=== PATIENT | female | born 1950 | race Caucasian/White ===

== ENCOUNTER → 2016-07-20 | Outpatient (CLI) | payer MEDICARE, MEDICAID ==
[~2016-07-20] MED LIST: AMLO5TAB88 PO; ASPI-518 PO; ATOR20TA65 PO; CELE200C PO; FURO40TA5 PO; GABA-531 PO; INSULIN; LOSA1TAB37 PO; METF850T2 PO; MONT10TA21 PO; SERT25TA74 PO; SITA100T6 PO
== END | disposition home or self-care (01) ==
LOC: MAMMO 13:49
PROVIDERS: ATTEND Internal Medicine
DX: Z12.31 Encounter for screening mammogram for malignant neoplasm of breast (principal)
CPT/HCPCS: G0202

== ENCOUNTER 2017-09-04 16:10 | Emergency (ER) | payer MEDICARE, MEDICAID ==
[~2017-09-04] VITALS: Ht 152.4 cm; Wt 80.0 kg
[~2017-09-04 16:10] MED LIST changes: +SITA100T11 PO; -SITA100T6 PO
[2017-09-04 16:28] VITALS: BP 150/78
== END 2017-09-04 16:32 | disposition home or self-care (01) ==
LOC: ER 16:10
DX: R10.9 Unspecified abdominal pain (principal); I12.0 Hypertensive chronic kidney disease with stage 5 chronic kidney disease or end stage renal disease; N18.6 End stage renal disease; Z99.2 Dependence on renal dialysis
CPT/HCPCS: 99283

== ENCOUNTER 2018-06-09 09:13 | Inpatient (IN) | payer MEDICARE, MEDICAID ==
[2018-06-09] VITALS (8 sets, daily range): BP systolic 98–207; BP diastolic 63–118
[~2018-06-09] VITALS: Ht 152.4 cm; Wt 109.0 kg
[~2018-06-09 09:13] MED LIST changes: +METF-415 PO; -METF850T2 PO
[2018-06-09] MEDS ORDERED: METHYLPREDNISOLONE SOD SUCC 125 MG/2 ML VIAL IV STA (09:17)
[2018-06-09] MEDS ORDERED: IPRATROPIUM BROMIDE (0.02%) 0.5MG/2.5ML NEB HHN STA (09:17)
[2018-06-09] MEDS ORDERED: MAGNESIUM 2 G PREMIX 50 ML IV ONE (09:30)
[2018-06-09] MEDS ORDERED: ALBUTEROL (0.083%) 2.5MG/3ML NEB HHN SCH (09:30)
[2018-06-09 09:53] LABS: BASOPHILS % 0.3 % (0.0-2.0); EOSINOPHILS % 0.3 % (0.0-5.0); HEMATOCRIT. 33.6 % (36.0-48.0); HEMOGLOBIN. 11.4 g/dL (12.0-16.0); LYMPHOCYTES % 7.2 % (20.0-50.0); MEAN CORPUSCULAR HEMOGLOBIN 33.4 pg (28.0-32.0); MEAN CORPUSCULAR VOLUME 98.2 fL (81.0-99.0); MEAN PLATELET VOLUME 7.5 fl (7.4-10.4); MONOCYTES % 6.4 % (2.0-8.0); NEUTROPHILS % 85.8 % (40.0-76.0); PLATELET 198 x1000/uL (130-400); RED BLOOD CELL COUNT 3.42 mill/uL (4.2-5.4)
[2018-06-09 09:57] LABS: CHLORIDE 92 mEq/L (98-107)
[2018-06-09] MEDS ORDERED: FUROSEMIDE 100MG/10ML VIAL IV STA (10:12)
[2018-06-09] MEDS ORDERED: SODIUM BICARBONATE 8.4% 1 MEQ/ML 50ML SYR IV ONE (10:15)
[2018-06-09] MEDS ORDERED: INSULIN REGULAR (HUMULIN R) 300UNITS/3ML IV ONE (10:15)
[2018-06-09] MEDS ORDERED: DEXTROSE 50% WATER 50ML SYRINGE IV ONE (10:15)
[2018-06-09] MEDS ORDERED: ENALAPRIL 2.5MG/2ML VIAL 2ML IV ONE (10:30)
[2018-06-09] MEDS ORDERED: ONDANSETRON HCL 4MG/2ML INJ IV PRN (11:45)
[2018-06-09] MEDS ORDERED: DOCUSATE SODIUM 100MG CAPSULE PO PRN (11:45)
[2018-06-09] MEDS ORDERED: SODIUM POLYSTYRENE SULFONATE 15 G/60 ML BOT PO ONE (11:45)
[2018-06-09] MEDS ORDERED: HYDROMORPHONE HCL/PF 2MG/ML CPJ IV PRN (11:45)
[2018-06-09] MEDS ORDERED: AMLODIPINE 10MG TABLET PO SCH (11:45)
[2018-06-09] MEDS ORDERED: ACETAMINOPHEN 325MG TABLET PO PRN (11:45)
[2018-06-09] MEDS ORDERED: HYDROCODONE/ACETAMINOPHEN 5/325MG TABLET PO PRN (11:45)
[2018-06-09] MEDS ORDERED: IPRATROPIUM/ALBUTEROL 0.5-3(2.5)MG/3ML NEB INH PRN (11:45)
[2018-06-09] MEDS ORDERED: MAGNESIUM/ALUMINUM HYDROXIDE/SIMETHICONE 30ML UDC PO PRN (11:45)
[2018-06-09] MEDS ORDERED: GUAIFENESIN 200MG/10ML SUGAR FREE UDC PO PRN (11:45)
[2018-06-09] MEDS ORDERED: DIPHENHYDRAMINE 50MG/ML VIAL IV PRN (11:45)
[2018-06-09] MEDS ORDERED: DEXTROSE 50% WATER 50ML SYRINGE IV PRN (15:15)
[2018-06-09] MEDS ORDERED: SODIUM POLYSTYRENE SULFONATE 15 G/60 ML BOT PO NR (15:30)
[2018-06-09] MEDS ORDERED: SERTRALINE HCL 25MG TABLET PO SCH (16:00)
[2018-06-09] MEDS: INSULIN LISPRO (MEDIUM DOSE) 100 UNITS/ML SUBCUT SCH ×2 (17:20→20:37)
[2018-06-09] MEDS: BLOOD SUGAR DIAGNOSTIC STRIP TEST SCH ×2 (17:20→20:30)
[2018-06-09] MEDS: MONTELUKAST SODIUM 10MG TABLET PO SCH (17:52)
[2018-06-09] MEDS: CLONIDINE 0.1MG TABLET PO PRN (17:52)
[2018-06-09] MEDS ORDERED: INS NPH/REG HM 70-30 100 UNITS/ML 10ML VIAL (HUMULIN 70-30) SUBCUT SCH (18:15)
[2018-06-09] MEDS ORDERED: LOSARTAN POTASSIUM 100 MG TABLET PO SCH (20:00)
[2018-06-09] MEDS: SERTRALINE HCL 25MG TABLET PO SCH (20:13)
[2018-06-09] MEDS: LOSARTAN POTASSIUM 100 MG TABLET PO SCH (20:13)
[2018-06-09] MEDS: AMLODIPINE 10MG TABLET PO SCH (20:14)
[2018-06-10] VITALS (12 sets, daily range): BP systolic 107–174; BP diastolic 58–95
[2018-06-10] MEDS: CLONIDINE 0.1MG TABLET PO PRN ×2 (01:25→17:06)
[2018-06-10] MEDS: INSULIN LISPRO (MEDIUM DOSE) 100 UNITS/ML SUBCUT SCH ×2 (05:40→12:20)
[2018-06-10] MEDS: BLOOD SUGAR DIAGNOSTIC STRIP TEST SCH ×4 (05:40→21:00)
[2018-06-10 06:56] LABS: CHLORIDE 96 mEq/L (98-107)
[2018-06-10 07:04] LABS: BASOPHILS % 0.3 % (0.0-2.0); EOSINOPHILS % 0.1 % (0.0-5.0); HEMATOCRIT. 29.8 % (36.0-48.0); HEMOGLOBIN. 10.1 g/dL (12.0-16.0); LYMPHOCYTES % 13.2 % (20.0-50.0); MEAN CORPUSCULAR HEMOGLOBIN 33.1 pg (28.0-32.0); MEAN CORPUSCULAR VOLUME 97.2 fL (81.0-99.0); MEAN PLATELET VOLUME 8.2 fl (7.4-10.4); MONOCYTES % 8.9 % (2.0-8.0); NEUTROPHILS % 77.5 % (40.0-76.0); PLATELET 166 x1000/uL (130-400); RED BLOOD CELL COUNT 3.06 mill/uL (4.2-5.4); RED CELL DISTRIBUTION WIDTH 14.5 % (11.6-14.6)
[2018-06-10 07:26] LABS: PHOSPHORUS 8.5 mg/dL (2.5-4.9)
[2018-06-10] MEDS ORDERED: INS NPH/REG HM 70-30 100 UNITS/ML 10ML VIAL (HUMULIN 70-30) SUBCUT SCH (08:15)
[2018-06-10] MEDS: AMLODIPINE 10MG TABLET PO SCH (08:24)
[2018-06-10] MEDS: SERTRALINE HCL 25MG TABLET PO SCH (08:24)
[2018-06-10] MEDS: LOSARTAN POTASSIUM 100 MG TABLET PO SCH (08:24)
[2018-06-10] MEDS: ASPIRIN/DIPYRIDAMOLE 25MG/200MG CAPSULE SA PO SCH (08:24)
[2018-06-10] MEDS: LANTHANUM CARBONATE 500MG CHEW TABLET PO SCH ×2 (13:45→17:06)
[2018-06-10] MEDS ORDERED: DEXTROSE 50% WATER 50ML SYRINGE IV PRN (17:00)
[2018-06-10] MEDS ORDERED: ENOXAPARIN 40MG/0.4ML SYR SUBCUT SCH (17:00)
[2018-06-10] MEDS: INSULIN LISPRO 100 UNITS/ML SUBCUT SCH ×2 (17:01→21:00)
[2018-06-10] MEDS: MONTELUKAST SODIUM 10MG TABLET PO SCH (17:05)
[2018-06-10] MEDS: NYSTATIN POWDER 15GM TOP SCH (18:49)
[2018-06-11] VITALS (9 sets, daily range): BP systolic 138–193; BP diastolic 55–91
[2018-06-11 06:23] LABS: BASOPHILS % 0.4 % (0.0-2.0); EOSINOPHILS % 3.5 % (0.0-5.0); HEMATOCRIT. 33.2 % (36.0-48.0); HEMOGLOBIN. 10.9 g/dL (12.0-16.0); LYMPHOCYTES % 20.8 % (20.0-50.0); MEAN CORPUSCULAR HEMOGLOBIN 32.4 pg (28.0-32.0); MEAN CORPUSCULAR VOLUME 98.4 fL (81.0-99.0); MEAN PLATELET VOLUME 8.2 fl (7.4-10.4); MONOCYTES % 10.2 % (2.0-8.0); NEUTROPHILS % 65.1 % (40.0-76.0); PLATELET 196 x1000/uL (130-400); RED BLOOD CELL COUNT 3.38 mill/uL (4.2-5.4); RED CELL DISTRIBUTION WIDTH 14.5 % (11.6-14.6)
[2018-06-11] MEDS: BLOOD SUGAR DIAGNOSTIC STRIP TEST SCH ×2 (06:55→11:52)
[2018-06-11] MEDS: INSULIN LISPRO 100 UNITS/ML SUBCUT SCH ×2 (06:55→11:59)
[2018-06-11] MEDS: LANTHANUM CARBONATE 500MG CHEW TABLET PO SCH ×2 (06:56→11:58)
[2018-06-11] MEDS: LOSARTAN POTASSIUM 100 MG TABLET PO SCH (08:19)
[2018-06-11] MEDS: SERTRALINE HCL 25MG TABLET PO SCH (08:19)
[2018-06-11] MEDS: AMLODIPINE 10MG TABLET PO SCH (08:19)
[2018-06-11] MEDS: NYSTATIN POWDER 15GM TOP SCH (08:19)
[2018-06-11] MEDS: ASPIRIN/DIPYRIDAMOLE 25MG/200MG CAPSULE SA PO SCH (08:19)
[2018-06-11] MEDS: CLONIDINE 0.1MG TABLET PO PRN (11:03)
[2018-06-11] MEDS ORDERED: HYDRALAZINE 20MG/ML VIAL IV NR (11:45)
== END 2018-06-11 13:15 | disposition home or self-care (01) | DRG 291 ==
LOC: ER 09:13 → EDBD 09:13 → 3WST 10:41 → EDBEDREQSVC 10:43 → EDBEDREQTM 10:43 → EDBEDREQ 10:43 → ENRESERV 11:32 → SUPCPDRO 11:34
PROVIDERS: ADMIT Hospitalist; ATTEND Hospitalist
PROC: 5A09357 Assistance with Respiratory Ventilation, Less than 24 Consecutive Hours, Continuous Positive Airway Pressure (ICD-10-PCS; principal; 2018-06-09)
PROC: 5A1D70Z Performance of Urinary Filtration, Intermittent, Less than 6 Hours Per Day (ICD-10-PCS; 2018-06-09)
PROC: 5A1D70Z Performance of Urinary Filtration, Intermittent, Less than 6 Hours Per Day (ICD-10-PCS; 2018-06-10)
DX: I13.2 Hypertensive heart and chronic kidney disease with heart failure and with stage 5 chronic kidney disease, or end stage renal disease (principal); J96.01 Acute respiratory failure with hypoxia; I50.33 Acute on chronic diastolic (congestive) heart failure; N18.6 End stage renal disease; E87.1 Hypo-osmolality and hyponatremia; N25.81 Secondary hyperparathyroidism of renal origin; Z68.42 Body mass index [BMI] 45.0-49.9, adult; E87.5 Hyperkalemia; E11.40 Type 2 diabetes mellitus with diabetic neuropathy, unspecified; E11.22 Type 2 diabetes mellitus with diabetic chronic kidney disease; J45.909 Unspecified asthma, uncomplicated; I16.0 Hypertensive urgency; E66.01 Morbid (severe) obesity due to excess calories; G47.33 Obstructive sleep apnea (adult) (pediatric); D64.9 Anemia, unspecified; L30.4 Erythema intertrigo; Z99.2 Dependence on renal dialysis; Z88.0 Allergy status to penicillin; Z88.5 Allergy status to narcotic agent; Z83.3 Family history of diabetes mellitus; Z82.49 Family history of ischemic heart disease and other diseases of the circulatory system; Z79.82 Long term (current) use of aspirin; Z79.899 Other long term (current) drug therapy; Z91.15 Patient's noncompliance with renal dialysis
CPT/HCPCS: 36415; 71045; 80048; 82962; 83735; 83880; 84100; 84484; 93005; 93970; 94640; 94660; 96365; 96375; 99291; J0360; J1200; J1650; J1815; J1940; J2930; J3475; J3490; J7611; J7620

== ENCOUNTER 2019-01-12 13:56 | Emergency (ER) | payer MEDICARE, MEDICAID ==
[~2019-01-12] VITALS: Ht 157.5 cm; Wt 84.0 kg
[2019-01-12 14:44] LABS: BASOPHILS % 0.6 % (0.0-2.0); CHLORIDE 96 mEq/L (98-107); EOSINOPHILS % 1.9 % (0.0-5.0); HEMATOCRIT. 30.6 % (36.0-48.0); HEMOGLOBIN. 10.4 g/dL (12.0-16.0); LYMPHOCYTES % 9.7 % (20.0-50.0); MEAN CORPUSCULAR HEMOGLOBIN 31.7 pg (28.0-32.0); MEAN PLATELET VOLUME 8.2 fl (7.4-10.4); MONOCYTES % 7.8 % (2.0-8.0); PLATELET 194 x1000/uL (130-400); RED BLOOD CELL COUNT 3.29 mill/uL (4.2-5.4); RED CELL DISTRIBUTION WIDTH 16.1 % (11.6-14.6)
[2019-01-12 16:51] VITALS: BP 147/74
== END 2019-01-12 16:54 | disposition home or self-care (01) ==
LOC: ER 13:56
DX: E11.649 Type 2 diabetes mellitus with hypoglycemia without coma (principal); T38.3X5A Adverse effect of insulin and oral hypoglycemic [antidiabetic] drugs, initial encounter; I12.0 Hypertensive chronic kidney disease with stage 5 chronic kidney disease or end stage renal disease; E11.22 Type 2 diabetes mellitus with diabetic chronic kidney disease; N18.6 End stage renal disease; Z99.2 Dependence on renal dialysis; Y92.530 Ambulatory surgery center as the place of occurrence of the external cause; Z79.4 Long term (current) use of insulin
CPT/HCPCS: 36415; 71045; 82962; 93005; 99284

== ENCOUNTER 2019-01-14 15:44 | Inpatient (IN) | payer MEDICARE, MEDICAID ==
[2019-01-14] VITALS (8 sets, daily range): BP systolic 149–183; BP diastolic 58–99
[~2019-01-14] VITALS: Ht 152.4 cm; Wt 95.3 kg
[2019-01-14] MEDS ORDERED: DEXTROSE 50% WATER 50ML SYRINGE IV ONE ×2 (16:04→16:15)
[2019-01-14 16:12] LABS: BASOPHILS % 0.7 % (0.0-2.0); EOSINOPHILS % 1.1 % (0.0-5.0); LYMPHOCYTES % 11.3 % (20.0-50.0); MEAN CORPUSCULAR HEMOGLOBIN 31.4 pg (28.0-32.0); MEAN CORPUSCULAR VOLUME 93.9 fL (81.0-99.0); MEAN PLATELET VOLUME 8.3 fl (7.4-10.4); NEUTROPHILS % 75.9 % (40.0-76.0); PLATELET 196 x1000/uL (130-400); RED BLOOD CELL COUNT 3.51 mill/uL (4.2-5.4); RED CELL DISTRIBUTION WIDTH 15.6 % (11.6-14.6)
[2019-01-14 16:19] LABS: CHLORIDE 96 mEq/L (98-107); PROTHROMBIN TIME 10.8 sec (9.6-11.0)
[2019-01-14 16:25] LABS: LDL CHOLESTEROL 76 mg/dL (5-100)
[2019-01-14] MEDS ORDERED: ASPIRIN 325MG TABLET PO ONE (17:15)
[2019-01-14] MEDS ORDERED: HYDRALAZINE 20MG/ML VIAL IV ONE (17:30)
[2019-01-14] MEDS ORDERED: HYDRALAZINE 20MG/ML VIAL ONE (17:32)
[2019-01-14] MEDS ORDERED: NICARDIPINE 40MG/200ML PREMIX 200 ML IV STA (18:19)
[2019-01-14] MEDS ORDERED: DOCUSATE SODIUM 100MG CAPSULE PO PRN (19:00)
[2019-01-14] MEDS: ACETAMINOPHEN 325MG TABLET PO PRN (19:36)
[2019-01-14] MEDS ORDERED: LISINOPRIL 20MG TABLET PO SCH (20:00)
[2019-01-14] MEDS ORDERED: SERTRALINE HCL 50MG TABLET PO NR (21:45)
[2019-01-14] MEDS: HYDRALAZINE HCL 50MG TABLET PO SCH (22:03)
[2019-01-14] MEDS: AMLODIPINE 10MG TABLET PO SCH (22:03)
[2019-01-15] VITALS (42 sets, daily range): BP systolic 145–196; BP diastolic 51–133
[2019-01-15] MEDS: LORAZEPAM 2MG/ML CPJ IV PRN ×2 (00:57→14:04)
[2019-01-15] MEDS: HYDRALAZINE 20MG/ML VIAL IV PRN ×3 (01:15→18:56)
[2019-01-15] MEDS: ACETAMINOPHEN 325MG TABLET PO PRN (01:21)
[2019-01-15] MEDS ORDERED: DEXTROSE 50% WATER 50ML SYRINGE IV PRN (02:15)
[2019-01-15] MEDS: ONDANSETRON HCL 4MG/2ML INJ IV PRN ×2 (03:20→14:03)
[2019-01-15] MEDS: HYDRALAZINE HCL 50MG TABLET PO SCH ×3 (05:01→21:46)
[2019-01-15] MEDS: CLONIDINE 0.1MG TABLET PO PRN (05:39)
[2019-01-15 05:45] LABS: BASOPHILS % 0.6 % (0.0-2.0); EOSINOPHILS % 0.9 % (0.0-5.0); HEMATOCRIT. 29.6 % (36.0-48.0); HEMOGLOBIN. 9.9 g/dL (12.0-16.0); LYMPHOCYTES % 9.2 % (20.0-50.0); MEAN CORPUSCULAR HEMOGLOBIN 31.6 pg (28.0-32.0); MEAN CORPUSCULAR VOLUME 94.4 fL (81.0-99.0); MEAN PLATELET VOLUME 8.5 fl (7.4-10.4); NEUTROPHILS % 79.3 % (40.0-76.0); PLATELET 177 x1000/uL (130-400); RED BLOOD CELL COUNT 3.13 mill/uL (4.2-5.4); RED CELL DISTRIBUTION WIDTH 15.5 % (11.6-14.6)
[2019-01-15 05:52] LABS: CHLORIDE 95 mEq/L (98-107)
[2019-01-15 05:58] LABS: PHOSPHORUS 4.9 mg/dL (2.5-4.9)
[2019-01-15 05:59] LABS: HDL CHOLESTEROL 78 mg/dL (40-59); LDL CHOLESTEROL 65 mg/dL (5-100)
[2019-01-15] MEDS ORDERED: CALCIUM CARBONATE 500MG TABLET CHEW PO SCH (08:20)
[2019-01-15] MEDS: INSULIN LISPRO 100 UNITS/ML SUBCUT SCH ×4 (08:20→22:09)
[2019-01-15] MEDS ORDERED: INSULIN LISPRO 100 UNITS/ML SUBCUT SCH (08:20)
[2019-01-15] MEDS: GUAIFENESIN 200MG/10ML SUGAR FREE UDC PO PRN ×2 (08:36→14:03)
[2019-01-15] MEDS: SERTRALINE HCL 50MG TABLET PO SCH (08:36)
[2019-01-15] MEDS: FOLIC ACID/VITAMIN B COMP W-C TABLET PO SCH (08:36)
[2019-01-15] MEDS: BLOOD SUGAR DIAGNOSTIC STRIP TEST SCH ×4 (08:38→21:46)
[2019-01-15] MEDS ORDERED: AMLODIPINE 10MG TABLET PO SCH (09:00)
[2019-01-15] MEDS: CALCIUM CARBONATE 500MG TABLET CHEW PO SCH ×2 (14:03→16:16)
[2019-01-15] MEDS: GABAPENTIN 300MG CAPSULE PO SCH ×2 (14:03→22:07)
[2019-01-15] MEDS: ASPIRIN/DIPYRIDAMOLE 25MG/200MG CAPSULE SA PO SCH ×2 (14:03→21:46)
[2019-01-15] MEDS: ENOXAPARIN 30MG/0.3ML SYR SUBCUT SCH (14:04)
[2019-01-15] MEDS: MONTELUKAST SODIUM 10MG TABLET PO SCH (16:17)
[2019-01-15] MEDS: ATORVASTATIN CALCIUM 10MG TABLET PO SCH (21:45)
[2019-01-15] MEDS: LOSARTAN POTASSIUM 100 MG TABLET PO SCH (21:46)
[2019-01-15] MEDS: AMLODIPINE 10MG TABLET PO SCH (21:46)
[2019-01-16] VITALS (21 sets, daily range): BP systolic 117–179; BP diastolic 51–69
[2019-01-16] MEDS: ONDANSETRON HCL 4MG/2ML INJ IV PRN ×2 (01:10→08:07)
[2019-01-16 05:12] LABS: BASOPHILS % 0.8 % (0.0-2.0); HEMOGLOBIN. 9.8 g/dL (12.0-16.0); LYMPHOCYTES % 12.1 % (20.0-50.0); MEAN CORPUSCULAR HEMOGLOBIN 32.3 pg (28.0-32.0); MEAN CORPUSCULAR VOLUME 95.8 fL (81.0-99.0); MEAN PLATELET VOLUME 8.6 fl (7.4-10.4); MONOCYTES % 8.8 % (2.0-8.0); NEUTROPHILS % 76.3 % (40.0-76.0); PLATELET 196 x1000/uL (130-400); RED BLOOD CELL COUNT 3.03 mill/uL (4.2-5.4); RED CELL DISTRIBUTION WIDTH 15.9 % (11.6-14.6)
[2019-01-16 05:32] LABS: CHLORIDE 93 mEq/L (98-107)
[2019-01-16 05:39] LABS: PHOSPHORUS 7.2 mg/dL (2.5-4.9)
[2019-01-16] MEDS: FOLIC ACID/VITAMIN B COMP W-C TABLET PO SCH (08:08)
[2019-01-16] MEDS: GUAIFENESIN 200MG/10ML SUGAR FREE UDC PO PRN (08:08)
[2019-01-16] MEDS: ASPIRIN/DIPYRIDAMOLE 25MG/200MG CAPSULE SA PO SCH ×2 (08:08→22:08)
[2019-01-16] MEDS: ENOXAPARIN 30MG/0.3ML SYR SUBCUT SCH (08:08)
[2019-01-16] MEDS: CALCIUM CARBONATE 500MG TABLET CHEW PO SCH ×3 (08:08→17:50)
[2019-01-16] MEDS: SERTRALINE HCL 50MG TABLET PO SCH (08:08)
[2019-01-16] MEDS: HYDRALAZINE HCL 50MG TABLET PO SCH ×2 (08:09→21:48)
[2019-01-16] MEDS: INSULIN LISPRO 100 UNITS/ML SUBCUT SCH ×4 (08:09→21:46)
[2019-01-16] MEDS: BLOOD SUGAR DIAGNOSTIC STRIP TEST SCH ×4 (08:09→21:49)
[2019-01-16] MEDS: GABAPENTIN 300MG CAPSULE PO SCH ×2 (10:49→21:49)
[2019-01-16] MEDS: MONTELUKAST SODIUM 10MG TABLET PO SCH (17:10)
[2019-01-16] MEDS: INS NPH/REG HM 70-30 100 UNITS/ML 10ML VIAL (HUMULIN 70-30) SUBCUT SCH (17:50)
[2019-01-16] MEDS: CLONIDINE 0.1MG TABLET PO PRN (18:19)
[2019-01-16] MEDS ORDERED: EPOETIN ALFA 4000UNITS/ML VIAL SUBCUT SCH (21:00)
[2019-01-16] MEDS: LOSARTAN POTASSIUM 100 MG TABLET PO SCH (21:48)
[2019-01-16] MEDS: ATORVASTATIN CALCIUM 10MG TABLET PO SCH (21:48)
[2019-01-16] MEDS: AMLODIPINE 10MG TABLET PO SCH (21:49)
[2019-01-17] VITALS: BP 128/45
[2019-01-17 04:00] VITALS: BP 116/42
[2019-01-17 05:43] LABS: BASOPHILS % 0.7 % (0.0-2.0); HEMOGLOBIN. 9.4 g/dL (12.0-16.0); LYMPHOCYTES % 13.8 % (20.0-50.0); MEAN CORPUSCULAR HEMOGLOBIN 32.3 pg (28.0-32.0); MEAN PLATELET VOLUME 8.4 fl (7.4-10.4); MONOCYTES % 9.8 % (2.0-8.0); NEUTROPHILS % 72.7 % (40.0-76.0); PLATELET 203 x1000/uL (130-400); RED BLOOD CELL COUNT 2.92 mill/uL (4.2-5.4); RED CELL DISTRIBUTION WIDTH 15.7 % (11.6-14.6)
[2019-01-17 06:30] LABS: PHOSPHORUS 5.8 mg/dL (2.5-4.9)
[2019-01-17] MEDS: BLOOD SUGAR DIAGNOSTIC STRIP TEST SCH ×4 (06:44→20:11)
[2019-01-17 08:00] VITALS: BP 137/47
[2019-01-17] MEDS: SERTRALINE HCL 50MG TABLET PO SCH (08:40)
[2019-01-17] MEDS: FOLIC ACID/VITAMIN B COMP W-C TABLET PO SCH (08:40)
[2019-01-17] MEDS: ASPIRIN/DIPYRIDAMOLE 25MG/200MG CAPSULE SA PO SCH ×2 (08:40→20:39)
[2019-01-17] MEDS: CALCIUM CARBONATE 500MG TABLET CHEW PO SCH ×3 (08:40→18:30)
[2019-01-17] MEDS: GABAPENTIN 300MG CAPSULE PO SCH ×2 (08:40→20:38)
[2019-01-17] MEDS: ENOXAPARIN 30MG/0.3ML SYR SUBCUT SCH (08:41)
[2019-01-17] MEDS: INS NPH/REG HM 70-30 100 UNITS/ML 10ML VIAL (HUMULIN 70-30) SUBCUT SCH ×2 (08:44→18:32)
[2019-01-17] MEDS: INSULIN LISPRO 100 UNITS/ML SUBCUT SCH ×4 (08:44→20:11)
[2019-01-17] MEDS: HYDRALAZINE HCL 50MG TABLET PO SCH ×2 (09:00→20:39)
[2019-01-17] MEDS: LACTULOSE 20G/30ML UDC PO SCH ×2 (11:00→11:50)
[2019-01-17] MEDS: POLYETHYLENE GLYCOL 3350 (17GM) 1 DOSE PACK PO SCH ×2 (11:00→11:50)
[2019-01-17 12:00] VITALS: BP 148/55
[2019-01-17 16:00] VITALS: BP 161/52
[2019-01-17] MEDS: MONTELUKAST SODIUM 10MG TABLET PO SCH (18:29)
[2019-01-17 20:37] VITALS: BP 153/63
[2019-01-17] MEDS: AMLODIPINE 10MG TABLET PO SCH (20:39)
[2019-01-17] MEDS: ATORVASTATIN CALCIUM 10MG TABLET PO SCH (20:39)
[2019-01-17] MEDS: LOSARTAN POTASSIUM 100 MG TABLET PO SCH (20:39)
[2019-01-18 00:24] VITALS: BP 142/48
[2019-01-18 04:00] VITALS: BP 151/54
[2019-01-18 06:45] LABS: BASOPHILS % 0.7 % (0.0-2.0); EOSINOPHILS % 3.5 % (0.0-5.0); HEMOGLOBIN. 9.5 g/dL (12.0-16.0); LYMPHOCYTES % 15.1 % (20.0-50.0); MEAN CORPUSCULAR HEMOGLOBIN 31.6 pg (28.0-32.0); MEAN CORPUSCULAR VOLUME 96.1 fL (81.0-99.0); MEAN PLATELET VOLUME 8.5 fl (7.4-10.4); MONOCYTES % 8.9 % (2.0-8.0); NEUTROPHILS % 71.8 % (40.0-76.0); PLATELET 191 x1000/uL (130-400); RED BLOOD CELL COUNT 3.01 mill/uL (4.2-5.4); RED CELL DISTRIBUTION WIDTH 15.7 % (11.6-14.6)
[2019-01-18] MEDS: BLOOD SUGAR DIAGNOSTIC STRIP TEST SCH (06:50)
[2019-01-18 07:37] LABS: PHOSPHORUS 4.4 mg/dL (2.5-4.9)
[2019-01-18 08:00] VITALS: BP 154/52
[2019-01-18] MEDS: FOLIC ACID/VITAMIN B COMP W-C TABLET PO SCH (08:56)
[2019-01-18] MEDS: ASPIRIN/DIPYRIDAMOLE 25MG/200MG CAPSULE SA PO SCH (08:57)
[2019-01-18] MEDS: ENOXAPARIN 30MG/0.3ML SYR SUBCUT SCH (08:57)
[2019-01-18] MEDS: CALCIUM CARBONATE 500MG TABLET CHEW PO SCH (08:57)
[2019-01-18] MEDS: SERTRALINE HCL 50MG TABLET PO SCH (08:57)
[2019-01-18] MEDS: GABAPENTIN 300MG CAPSULE PO SCH (08:57)
[2019-01-18] MEDS: HYDRALAZINE HCL 50MG TABLET PO SCH (08:57)
[2019-01-18] MEDS: INSULIN LISPRO 100 UNITS/ML SUBCUT SCH (08:59)
[2019-01-18] MEDS: INS NPH/REG HM 70-30 100 UNITS/ML 10ML VIAL (HUMULIN 70-30) SUBCUT SCH (09:01)
[2019-01-18 10:27] VITALS: BP 154/52
== END 2019-01-18 11:35 | disposition home or self-care (01) | DRG 637 ==
LOC: ER 15:44 → CVICU 18:17 → EDBEDREQ 18:19 → EDBEDREQSVC 18:19 → ENRESERV 18:39 → 6WST 01-16 11:59
PROVIDERS: ADMIT Hospitalist; ATTEND Hospitalist
PROC: 5A1D70Z Performance of Urinary Filtration, Intermittent, Less than 6 Hours Per Day (ICD-10-PCS; principal; 2019-01-16)
PROC: 5A1D70Z Performance of Urinary Filtration, Intermittent, Less than 6 Hours Per Day (ICD-10-PCS; 2019-01-17)
DX: E11.649 Type 2 diabetes mellitus with hypoglycemia without coma (principal); I50.33 Acute on chronic diastolic (congestive) heart failure; I13.2 Hypertensive heart and chronic kidney disease with heart failure and with stage 5 chronic kidney disease, or end stage renal disease; I16.1 Hypertensive emergency; G93.40 Encephalopathy, unspecified; Z68.41 Body mass index [BMI] 40.0-44.9, adult; N18.6 End stage renal disease; N25.81 Secondary hyperparathyroidism of renal origin; F41.9 Anxiety disorder, unspecified; E11.22 Type 2 diabetes mellitus with diabetic chronic kidney disease; E11.42 Type 2 diabetes mellitus with diabetic polyneuropathy; E11.65 Type 2 diabetes mellitus with hyperglycemia; E78.5 Hyperlipidemia, unspecified; E83.39 Other disorders of phosphorus metabolism; F17.200 Nicotine dependence, unspecified, uncomplicated; F32.9 Major depressive disorder, single episode, unspecified; J44.9 Chronic obstructive pulmonary disease, unspecified; K21.9 Gastro-esophageal reflux disease without esophagitis; M19.90 Unspecified osteoarthritis, unspecified site; E66.01 Morbid (severe) obesity due to excess calories; G47.33 Obstructive sleep apnea (adult) (pediatric); I25.10 Atherosclerotic heart disease of native coronary artery without angina pectoris; Z79.899 Other long term (current) drug therapy; Z82.49 Family history of ischemic heart disease and other diseases of the circulatory system; Z99.2 Dependence on renal dialysis; Z79.82 Long term (current) use of aspirin; Z88.0 Allergy status to penicillin; Z88.8 Allergy status to other drugs, medicaments and biological substances; Z87.01 Personal history of pneumonia (recurrent)
CPT/HCPCS: 36415; 70496; 70498; 71045; 80048; 80053; 80061; 82962; 83721; 84100; 84484; 85025; 93005; 93306; 93970; 96374; 97162; 97530; 99291; J0360; J0885; J1650; J1815; J2060; J2405; Q9967

== ENCOUNTER 2019-09-14 07:20 | Inpatient (IN) | payer MEDICARE, MEDICAID ==
[~2019-09-14] VITALS: Ht 312.4 cm; Wt 100.2 kg
[2019-09-14] MEDS ORDERED: NITROGLYCERIN 0.4MG TABLET SL SL PRN (08:00)
[2019-09-14] MEDS ORDERED: CLONIDINE 0.1MG TABLET PO ONE (08:00)
[2019-09-14] MEDS ORDERED: NITROGLYCERIN OINT 1GM/INCH UDPKT TD ONE (08:00)
[2019-09-14 08:17] LABS: BASOPHILS % 0.2 % (0.0-2.0); EOSINOPHILS % 0.9 % (0.0-5.0); HEMATOCRIT. 33.9 % (36.0-48.0); HEMOGLOBIN. 11.6 g/dL (12.0-16.0); LYMPHOCYTES % 14.1 % (20.0-50.0); MEAN CORPUSCULAR HEMOGLOBIN 34.4 pg (28.0-32.0); MEAN CORPUSCULAR VOLUME 100.2 fL (81.0-99.0); MONOCYTES % 6.2 % (2.0-8.0); NEUTROPHILS % 78.6 % (40.0-76.0); PLATELET 176 x1000/uL (130-400); RED BLOOD CELL COUNT 3.38 mill/uL (4.2-5.4); RED CELL DISTRIBUTION WIDTH 13.4 % (11.6-14.6)
[2019-09-14 08:23] LABS: CHLORIDE 94 mEq/L (98-107)
[2019-09-14 08:24] LABS: PROTHROMBIN TIME 10.5 sec (9.6-11.0)
[2019-09-14] MEDS ORDERED: INSULIN REGULAR (HUMULIN R) 300UNITS/3ML IV ONE (08:45)
[2019-09-14] MEDS ORDERED: DEXTROSE 50% WATER 50ML SYRINGE IV ONE (08:45)
[2019-09-14] MEDS ORDERED: SODIUM BICARBONATE 8.4% 1 MEQ/ML 50ML SYR IV ONE (08:45)
[2019-09-14] MEDS ORDERED: LEVOFLOXACIN 750MG PREMIX 150 ML IV ONE (08:45)
[2019-09-14] MEDS: SERTRALINE HCL 25MG TABLET PO SCH (12:15)
[2019-09-14] MEDS ORDERED: DOCUSATE SODIUM 100MG CAPSULE PO PRN (12:15)
[2019-09-14] MEDS: AMLODIPINE 10MG TABLET PO SCH (12:15)
[2019-09-14] MEDS ORDERED: GUAIFENESIN 200MG/10ML SUGAR FREE UDC PO PRN (12:15)
[2019-09-14] MEDS ORDERED: DIPHENHYDRAMINE 50MG/ML VIAL IV PRN (12:15)
[2019-09-14] MEDS ORDERED: ONDANSETRON HCL 4MG/2ML INJ IV PRN (12:15)
[2019-09-14] MEDS ORDERED: MAGNESIUM/ALUMINUM HYDROXIDE/SIMETHICONE 30ML UDC PO PRN (12:15)
[2019-09-14] MEDS ORDERED: SODIUM POLYSTYRENE SULFONATE 15 G/60 ML BOT PO NR (13:00)
[2019-09-14] MEDS: ENOXAPARIN 40MG/0.4ML SYR SUBCUT SCH (13:00)
[2019-09-14 16:35] VITALS: BP 183/81
[2019-09-14 18:00] VITALS: BP 184/77
[2019-09-14 19:55] VITALS: BP 154/84
[2019-09-14 20:00] VITALS: BP 208/110
[2019-09-14] MEDS ORDERED: ATORVASTATIN CALCIUM 20MG TABLET PO SCH (21:00)
[2019-09-14] MEDS ORDERED: MONTELUKAST SODIUM 10MG TABLET PO SCH (21:00)
[2019-09-14] MEDS: ACETAMINOPHEN 325MG TABLET PO PRN (21:18)
[2019-09-14 22:00] VITALS: BP 193/86
[2019-09-15] VITALS (8 sets, daily range): BP systolic 139–205; BP diastolic 55–104
[2019-09-15] MEDS ORDERED: DEXTROSE 50% WATER 50ML SYRINGE IV PRN (00:30)
[2019-09-15] MEDS: CLONIDINE 0.1MG TABLET PO PRN ×2 (04:39→15:15)
[2019-09-15 06:16] LABS: HEMATOCRIT. 30.9 % (36.0-48.0); HEMOGLOBIN. 10.7 g/dL (12.0-16.0); MEAN CORPUSCULAR HEMOGLOBIN 34.4 pg (28.0-32.0); MEAN CORPUSCULAR VOLUME 99.5 fL (81.0-99.0); MEAN PLATELET VOLUME 8.5 fl (7.4-10.4); PLATELET 160 x1000/uL (130-400); RED BLOOD CELL COUNT 3.11 mill/uL (4.2-5.4); RED CELL DISTRIBUTION WIDTH 13.5 % (11.6-14.6)
[2019-09-15 06:41] LABS: PHOSPHORUS 5.6 mg/dL (2.5-4.9)
[2019-09-15] MEDS: BLOOD SUGAR DIAGNOSTIC STRIP TEST SCH ×2 (08:00→12:16)
[2019-09-15] MEDS: INSULIN LISPRO 100 UNITS/ML SUBCUT SCH ×2 (08:00→12:16)
[2019-09-15] MEDS: SERTRALINE HCL 25MG TABLET PO SCH (08:32)
[2019-09-15] MEDS: AMLODIPINE 10MG TABLET PO SCH (08:32)
[2019-09-15] MEDS: ACETAMINOPHEN 325MG TABLET PO PRN (08:33)
[2019-09-15] MEDS ORDERED: FUROSEMIDE 40MG TABLET PO SCH (09:00)
[2019-09-15] MEDS: ENOXAPARIN 40MG/0.4ML SYR SUBCUT SCH (12:15)
[2019-09-15] MEDS ORDERED: LIDOCAINE HCL 1% 20ML VIAL (Pyxis) INJ ONE (12:57)
[2019-09-15 13:29] LABS: PLATELET ESTIMATE NORMAL
[2019-09-16] MEDS ORDERED: LEVOFLOXACIN 500MG PREMIX 100 ML IV SCH (09:00)
== END 2019-09-15 15:45 | disposition home or self-care (01) | DRG 291 ==
LOC: ER 07:56 → EDBEDREQTM 08:46 → EDBEDREQSVC 08:46 → EDBEDREQ 08:46 → 5EST 09:18 → EDBEDREQTM 09:21 → EDBEDREQ 09:21 → ENRESERV 14:46
PROVIDERS: ADMIT Hospitalist; ATTEND Hospitalist
PROC: 5A1D70Z Performance of Urinary Filtration, Intermittent, Less than 6 Hours Per Day (ICD-10-PCS; principal; 2019-09-14)
DX: I13.2 Hypertensive heart and chronic kidney disease with heart failure and with stage 5 chronic kidney disease, or end stage renal disease (principal); J96.01 Acute respiratory failure with hypoxia; I50.33 Acute on chronic diastolic (congestive) heart failure; N18.6 End stage renal disease; Z68.1 Body mass index [BMI] 19.9 or less, adult; E11.22 Type 2 diabetes mellitus with diabetic chronic kidney disease; E87.5 Hyperkalemia; I25.10 Atherosclerotic heart disease of native coronary artery without angina pectoris; E66.01 Morbid (severe) obesity due to excess calories; G47.33 Obstructive sleep apnea (adult) (pediatric); E21.1 Secondary hyperparathyroidism, not elsewhere classified; D64.9 Anemia, unspecified; E11.65 Type 2 diabetes mellitus with hyperglycemia; J44.9 Chronic obstructive pulmonary disease, unspecified; Z99.2 Dependence on renal dialysis; Z99.81 Dependence on supplemental oxygen; Z88.6 Allergy status to analgesic agent; Z88.0 Allergy status to penicillin; Z79.82 Long term (current) use of aspirin; Z79.84 Long term (current) use of oral hypoglycemic drugs; Z79.4 Long term (current) use of insulin; Z79.899 Other long term (current) drug therapy
CPT/HCPCS: 36415; 71045; 80048; 80053; 82962; 83036; 83735; 84100; 84484; 85025; 93005; 93970; 99291; J1200; J1650; J1815; J1956; J3490

== ENCOUNTER 2020-02-19 08:40 | Inpatient (IN) | payer MEDICARE, MEDICAID ==
[~2020-02-19] VITALS: Ht 165.1 cm; Wt 99.8 kg
[2020-02-19] MEDS ORDERED: METHYLPREDNISOLONE SOD SUCC 125 MG/2 ML VIAL IV STA (08:45)
[2020-02-19] MEDS ORDERED: MAGNESIUM 2 G PREMIX 50 ML IV STA (08:45)
[2020-02-19] MEDS ORDERED: IPRATROPIUM BROMIDE (0.02%) 0.5MG/2.5ML NEB HHN STA (08:45)
[2020-02-19] MEDS ORDERED: ALBUTEROL (0.083%) 2.5MG/3ML NEB HHN STA (08:45)
[2020-02-19 10:23] LABS: HEMATOCRIT. 30.4 % (36.0-48.0); HEMOGLOBIN. 10.2 g/dL (12.0-16.0); MEAN CORPUSCULAR HEMOGLOBIN 34.4 pg (28.0-32.0); MEAN CORPUSCULAR VOLUME 102.3 fL (81.0-99.0); MEAN PLATELET VOLUME 8.9 fl (7.4-10.4); PLATELET 176 x1000/uL (130-400); RED BLOOD CELL COUNT 2.97 mill/uL (4.2-5.4); RED CELL DISTRIBUTION WIDTH 13.3 % (11.6-14.6)
[2020-02-19 10:44] LABS: BG BASE EXCESS 0.7 mmol/L (-2.0-2.0); BG CARBOXYHEMOGLOBIN 0.3 % (0.5-1.5); BG DEOXYHEMOGLOBIN 1.5 % (0.0-5.0); BG HCO3 ACT 25.6 mmol/L (22.0-26.0); BG METHEMOGLOBIN 0.2 % (0.0-1.5); BG OXYGEN SATURATION 98.5 % (92.0-98.5); BG PCO2 42.1 mmHg (35.0-45.0); BG PH 7.402 (7.350-7.450); BG PO2 145.3 mmHg (75.0-100.0); BG SAMPLE SITE LEFT BRACHIAL; BG TOTAL HEMOGLOBIN 11.1 g/dL (12.0-18.0); BG VENT MODE HHN MASK
[2020-02-19 11:46] LABS: PLATELET ESTIMATE NORMAL
[2020-02-19 12:26] LABS: CHLORIDE 95 mEq/L (98-107)
[2020-02-19] MEDS ORDERED: DOCUSATE SODIUM 100MG CAPSULE PO PRN (16:15)
[2020-02-19] MEDS ORDERED: ACETAMINOPHEN 325MG TABLET PO PRN (16:15)
[2020-02-19] MEDS ORDERED: ONDANSETRON HCL 4MG/2ML INJ IV PRN (16:15)
[2020-02-19] MEDS ORDERED: DIPHENHYDRAMINE 50MG/ML VIAL IV PRN (16:15)
[2020-02-19] MEDS ORDERED: LORAZEPAM 2MG/ML CPJ IV PRN (16:15)
[2020-02-19] MEDS ORDERED: GUAIFENESIN 200MG/10ML SUGAR FREE UDC PO PRN (16:15)
[2020-02-19] MEDS ORDERED: DEXTROSE 50% WATER 50ML SYRINGE IV PRN ×2 (16:15→17:30)
[2020-02-19] MEDS ORDERED: HYDROCODONE/ACETAMINOPHEN 5/325MG TABLET PO PRN ×2 (16:15→18:15)
[2020-02-19] MEDS ORDERED: IPRATROPIUM/ALBUTEROL 0.5-3(2.5)MG/3ML NEB HHN PRN (16:15)
[2020-02-19] MEDS ORDERED: MORPHINE SULFATE 2 MG/ML CPJ (NOT FOR IM USE) IV PRN (16:15)
[2020-02-19] MEDS ORDERED: CLONIDINE 0.1MG TABLET PO PRN (16:15)
[2020-02-19] MEDS ORDERED: MAGNESIUM/ALUMINUM HYDROXIDE/SIMETHICONE 30ML UDC PO PRN (16:15)
[2020-02-19] MEDS ORDERED: BLOOD SUGAR DIAGNOSTIC STRIP TEST SCH (17:00)
[2020-02-19] MEDS ORDERED: INSULIN LISPRO 100 UNITS/ML SUBCUT SCH (18:20)
[2020-02-19] MEDS: INSULIN LISPRO 100 UNITS/ML SUBCUT SCH ×2 (18:28→20:57)
[2020-02-19] MEDS: ENOXAPARIN 40MG/0.4ML SYR SUBCUT SCH (18:28)
[2020-02-19] MEDS: BLOOD SUGAR DIAGNOSTIC STRIP TEST SCH (20:48)
[2020-02-19] MEDS: SODIUM CHLORIDE 0.9% INJ 3ML FLUSH IVF SCH (22:16)
[2020-02-20] VITALS (9 sets, daily range): BP systolic 142–169; BP diastolic 50–79
[2020-02-20] MEDS: SODIUM CHLORIDE 0.9% INJ 3ML FLUSH IVF SCH ×3 (06:31→21:31)
[2020-02-20] MEDS: BLOOD SUGAR DIAGNOSTIC STRIP TEST SCH ×4 (06:48→21:02)
[2020-02-20] MEDS: INSULIN LISPRO 100 UNITS/ML SUBCUT SCH ×4 (07:20→21:14)
[2020-02-20 07:41] LABS: HEMATOCRIT. 27.9 % (36.0-48.0); HEMOGLOBIN. 9.6 g/dL (12.0-16.0); MEAN CORPUSCULAR HEMOGLOBIN 34.4 pg (28.0-32.0); MEAN CORPUSCULAR VOLUME 100.3 fL (81.0-99.0); MEAN PLATELET VOLUME 8.9 fl (7.4-10.4); PLATELET 170 x1000/uL (130-400); RED BLOOD CELL COUNT 2.78 mill/uL (4.2-5.4)
[2020-02-20 07:51] LABS: CHLORIDE 99 mEq/L (98-107)
[2020-02-20 08:00] LABS: LDL CHOLESTEROL 85 mg/dL (5-100)
[2020-02-20 08:04] LABS: CREATINE KINASE 197 IU/L (26-192); CREATINE KINASE MB FRACTION 8.7 ng/mL (0.5-3.6)
[2020-02-20 08:05] LABS: HDL CHOLESTEROL 83 mg/dL (40-59)
[2020-02-20] MEDS: ASPIRIN 81MG EC TABLET PO SCH (10:06)
[2020-02-20] MEDS: AMLODIPINE 5MG TABLET PO SCH ×2 (10:06→21:28)
[2020-02-20] MEDS: NITROGLYCERIN OINT 1GM/INCH UDPKT TD SCH ×2 (10:07→21:28)
[2020-02-20 10:28] LABS: PLATELET ESTIMATE NORMAL
[2020-02-20] MEDS: ENOXAPARIN 40MG/0.4ML SYR SUBCUT SCH (17:23)
[2020-02-20] MEDS: AZITHROMYCIN 250 MG TABLET PO SCH (17:23)
[2020-02-20] MEDS ORDERED: EPOETIN ALFA-EPBX 10,000 UNIT/ML VIAL SUBCUT SCH (21:00)
[2020-02-20] MEDS: ATORVASTATIN CALCIUM 20MG TABLET PO SCH (21:15)
[2020-02-20] MEDS: IPRATROPIUM/ALBUTEROL 0.5-3(2.5)MG/3ML NEB HHN SCH (21:27)
[2020-02-21] VITALS (12 sets, daily range): BP systolic 129–188; BP diastolic 40–97
[2020-02-21] MEDS: IPRATROPIUM/ALBUTEROL 0.5-3(2.5)MG/3ML NEB HHN SCH ×6 (01:23→19:54)
[2020-02-21] MEDS: SODIUM CHLORIDE 0.9% INJ 3ML FLUSH IVF SCH ×3 (06:00→22:42)
[2020-02-21 06:14] LABS: CHLORIDE 96 mEq/L (98-107)
[2020-02-21 06:20] LABS: PHOSPHORUS 7.9 mg/dL (2.5-4.9)
[2020-02-21 06:37] LABS: BASOPHILS % 0.3 % (0.0-2.0); EOSINOPHILS % 2.7 % (0.0-5.0); LYMPHOCYTES % 11.9 % (20.0-50.0); MEAN CORPUSCULAR HEMOGLOBIN 34.5 pg (28.0-32.0); MEAN CORPUSCULAR VOLUME 100.2 fL (81.0-99.0); MEAN PLATELET VOLUME 8.8 fl (7.4-10.4); MONOCYTES % 8.3 % (2.0-8.0); NEUTROPHILS % 76.8 % (40.0-76.0); PLATELET 158 x1000/uL (130-400); RED CELL DISTRIBUTION WIDTH 12.9 % (11.6-14.6)
[2020-02-21] MEDS: INSULIN LISPRO 100 UNITS/ML SUBCUT SCH ×4 (07:20→21:00)
[2020-02-21] MEDS: BLOOD SUGAR DIAGNOSTIC STRIP TEST SCH ×4 (07:31→21:00)
[2020-02-21] MEDS ORDERED: LIDOCAINE HCL 1% 20ML VIAL (Pyxis) INJ ONE (10:38)
[2020-02-21] MEDS ORDERED: FENTANYL CITRATE/PF 50MCG/ML 2ML VIAL ONE (10:38)
[2020-02-21] MEDS ORDERED: MIDAZOLAM HCL 2 MG/2 ML VIAL ONE (10:38)
[2020-02-21] MEDS ORDERED: IODIXANOL 320MG/ML 200ML BOTTLE ONE (10:39)
[2020-02-21] MEDS ORDERED: ACETAMINOPHEN 325MG TABLET PO PRN (11:30)
[2020-02-21] MEDS ORDERED: ATROPINE SULFATE 1MG/10ML SYR IV PRN (11:30)
[2020-02-21] MEDS ORDERED: ONDANSETRON HCL 4MG/2ML INJ IV PRN (11:30)
[2020-02-21] MEDS: ASPIRIN 81MG EC TABLET PO SCH (12:02)
[2020-02-21] MEDS: AMLODIPINE 5MG TABLET PO SCH ×2 (12:03→22:42)
[2020-02-21] MEDS: AZITHROMYCIN 250 MG TABLET PO SCH (12:03)
[2020-02-21] MEDS: NITROGLYCERIN OINT 1GM/INCH UDPKT TD SCH ×2 (12:03→22:42)
[2020-02-21] MEDS ORDERED: IOHEXOL-300 100 ML BOTTLE ONE (16:31)
[2020-02-21] MEDS: ENOXAPARIN 40MG/0.4ML SYR SUBCUT SCH (17:08)
[2020-02-21] MEDS: ATORVASTATIN CALCIUM 20MG TABLET PO SCH (22:41)
[2020-02-22] VITALS: BP 145/55
[2020-02-22] MEDS: IPRATROPIUM/ALBUTEROL 0.5-3(2.5)MG/3ML NEB HHN SCH ×4 (00:04→11:43)
[2020-02-22 04:00] VITALS: BP 150/64
[2020-02-22 06:00] VITALS: BP 149/68
[2020-02-22] MEDS: BLOOD SUGAR DIAGNOSTIC STRIP TEST SCH ×2 (06:09→11:50)
[2020-02-22] MEDS: SODIUM CHLORIDE 0.9% INJ 3ML FLUSH IVF SCH (06:09)
[2020-02-22 07:48] LABS: BASOPHILS % 0.5 % (0.0-2.0); EOSINOPHILS % 4.1 % (0.0-5.0); HEMATOCRIT. 25.6 % (36.0-48.0); HEMOGLOBIN. 8.8 g/dL (12.0-16.0); LYMPHOCYTES % 9.3 % (20.0-50.0); MEAN CORPUSCULAR HEMOGLOBIN 34.1 pg (28.0-32.0); MEAN CORPUSCULAR VOLUME 99.3 fL (81.0-99.0); MEAN PLATELET VOLUME 9.1 fl (7.4-10.4); MONOCYTES % 7.2 % (2.0-8.0); NEUTROPHILS % 78.9 % (40.0-76.0); PLATELET 163 x1000/uL (130-400); RED BLOOD CELL COUNT 2.58 mill/uL (4.2-5.4); RED CELL DISTRIBUTION WIDTH 13.1 % (11.6-14.6)
[2020-02-22 08:28] LABS: BG BASE EXCESS -4.9 mmol/L (-2.0-2.0); BG CARBOXYHEMOGLOBIN 1.1 % (0.5-1.5); BG DEOXYHEMOGLOBIN 11.1 % (0.0-5.0); BG FRACTION INSPIRED OXYGEN 32; BG HCO3 ACT 19.7 mmol/L (22.0-26.0); BG METHEMOGLOBIN 0.3 % (0.0-1.5); BG OXYGEN SATURATION 88.7 % (92.0-98.5); BG OXYHEMOGLOBIN 87.5 % (94.0-97.0); BG PCO2 34.8 mmHg (35.0-45.0); BG PH 7.371 (7.350-7.450); BG PO2 59.4 mmHg (75.0-100.0); BG SAMPLE SITE RIGHT RADIAL
[2020-02-22] MEDS: ASPIRIN 81MG EC TABLET PO SCH (09:22)
[2020-02-22] MEDS: AMLODIPINE 5MG TABLET PO SCH (09:22)
[2020-02-22] MEDS: AZITHROMYCIN 250 MG TABLET PO SCH (09:22)
[2020-02-22] MEDS: NITROGLYCERIN OINT 1GM/INCH UDPKT TD SCH (09:23)
[2020-02-22] MEDS: INSULIN LISPRO 100 UNITS/ML SUBCUT SCH ×2 (09:35→12:59)
[2020-02-22 11:23] VITALS: BP 149/84
[2020-02-22] MEDS ORDERED: SEVELAMER CARBONATE 800 MG TABLET PO SCH (17:20)
== END 2020-02-22 14:30 | disposition home or self-care (01) | DRG 280 ==
LOC: ER 08:40 → ENRESERV 21:47 → 3WST 02-20 00:18
PROVIDERS: ADMIT Internal Medicine; ATTEND Internal Medicine
PROC: 5A09357 Assistance with Respiratory Ventilation, Less than 24 Consecutive Hours, Continuous Positive Airway Pressure (ICD-10-PCS; principal; 2020-02-19)
PROC: 5A1D70Z Performance of Urinary Filtration, Intermittent, Less than 6 Hours Per Day (ICD-10-PCS; 2020-02-19)
PROC: 5A1D70Z Performance of Urinary Filtration, Intermittent, Less than 6 Hours Per Day (ICD-10-PCS; 2020-02-20)
PROC: B2111ZZ Fluoroscopy of Multiple Coronary Arteries using Low Osmolar Contrast (ICD-10-PCS; 2020-02-21)
DX: I21.4 Non-ST elevation (NSTEMI) myocardial infarction (principal); J96.00 Acute respiratory failure, unspecified whether with hypoxia or hypercapnia; N18.6 End stage renal disease; I13.2 Hypertensive heart and chronic kidney disease with heart failure and with stage 5 chronic kidney disease, or end stage renal disease; N25.81 Secondary hyperparathyroidism of renal origin; E87.1 Hypo-osmolality and hyponatremia; Z20.828 Contact with and (suspected) exposure to other viral communicable diseases; D64.9 Anemia, unspecified; E11.22 Type 2 diabetes mellitus with diabetic chronic kidney disease; E11.65 Type 2 diabetes mellitus with hyperglycemia; E66.01 Morbid (severe) obesity due to excess calories; E78.5 Hyperlipidemia, unspecified; F32.9 Major depressive disorder, single episode, unspecified; G47.33 Obstructive sleep apnea (adult) (pediatric); G62.9 Polyneuropathy, unspecified; H54.61 Unqualified visual loss, right eye, normal vision left eye; H54.62 Unqualified visual loss, left eye, normal vision right eye; I15.2 Hypertension secondary to endocrine disorders; Z96.659 Presence of unspecified artificial knee joint; I25.10 Atherosclerotic heart disease of native coronary artery without angina pectoris; I27.20 Pulmonary hypertension, unspecified; J45.909 Unspecified asthma, uncomplicated; J44.9 Chronic obstructive pulmonary disease, unspecified; I35.0 Nonrheumatic aortic (valve) stenosis; I50.9 Heart failure, unspecified; E83.39 Other disorders of phosphorus metabolism; Z79.4 Long term (current) use of insulin; Z82.3 Family history of stroke; Z82.49 Family history of ischemic heart disease and other diseases of the circulatory system; Z88.0 Allergy status to penicillin; Z99.2 Dependence on renal dialysis; Z99.81 Dependence on supplemental oxygen; Z79.82 Long term (current) use of aspirin; Z88.5 Allergy status to narcotic agent; Z91.11 Patient's noncompliance with dietary regimen; Z68.36 Body mass index [BMI] 36.0-36.9, adult; Z79.899 Other long term (current) drug therapy
CPT/HCPCS: 36415; 36600; 71045; 71260; 74177; 80048; 80053; 80061; 82375; 82550; 82553; 82805; 82962; 83036; 83735; 83880; 84100; 84484; 85025; 87426; 93005; 93306; 93455; 93880; 93970; 94640; 94644; 94660; 96372; 97162; 99291; C1760; C1769; C1887; C1893; J0885; J1644; J1650; J1815; J2250; J2405; J2930; J3010; J3475; J3490; Q9967

== ENCOUNTER 2020-05-16 07:45 | Inpatient (IN) | payer MEDICARE, MEDICAID ==
[2020-05-16] VITALS (8 sets, daily range): BP systolic 125–183; BP diastolic 54–73
[~2020-05-16] VITALS: Ht 152.4 cm; Wt 94.0 kg
[~2020-05-16 07:45] MED LIST changes: -AMLO5TAB88 PO; +ASPI-1406 PO; -ASPI-518 PO; +ATOR10TA69 PO; -ATOR20TA65 PO; +BUPR100T13 MT; +CARV12.545 MT; -CELE200C PO; +CLON0.1T PO; +CLOP75TA15 PO; +FLUT12AE7 INH; -FURO40TA5 PO; -GABA-531 PO; +GABA-532 PO; -INSULIN; -LOSA1TAB37 PO; -METF-415 PO; +METH25TA5 MT; +MONT10TA21 MT; -MONT10TA21 PO; +NVLG73 SUBCUT; +PANT40TA51 MT; +SACU1TAB MT; +SERT-422 MT; -SERT25TA74 PO; +SEVE800T8 MT; -SITA100T11 PO; +SITA25TA3 MT
[2020-05-16] MEDS ORDERED: ALBUTEROL (0.083%) 2.5MG/3ML NEB ONE (08:10)
[2020-05-16] MEDS ORDERED: IPRATROPIUM BROMIDE (0.02%) 0.5MG/2.5ML NEB ONE (08:11)
[2020-05-16 08:34] LABS: BG BASE EXCESS -1.3 mmol/L (-2.0-2.0); BG CARBOXYHEMOGLOBIN 0.5 % (0.5-1.5); BG DEOXYHEMOGLOBIN 2.8 % (0.0-5.0); BG FRACTION INSPIRED OXYGEN 40; BG HCO3 ACT 24.2 mmol/L (22.0-26.0); BG METHEMOGLOBIN 0.2 % (0.0-1.5); BG OXYGEN SATURATION 97.2 % (92.0-98.5); BG OXYHEMOGLOBIN 96.5 % (94.0-97.0); BG PH 7.359 (7.350-7.450); BG SAMPLE SITE LEFT RADIAL; BG TOTAL HEMOGLOBIN 10.7 g/dL (12.0-18.0); BG VENT MODE MASK - BIPAP
[2020-05-16] MEDS ORDERED: ENALAPRIL 2.5MG/2ML VIAL 2ML IV ONE (08:45)
[2020-05-16] MEDS ORDERED: FUROSEMIDE 40MG/4ML VIAL IVP ONE (08:45)
[2020-05-16] MEDS ORDERED: ENALAPRIL 1.25MG/ML VIAL 1ML IV ONE (09:30)
[2020-05-16 10:15] LABS: BASOPHILS % 0.4 % (0.0-2.0); HEMATOCRIT. 32.1 % (36.0-48.0); HEMOGLOBIN. 10.6 g/dL (12.0-16.0); LYMPHOCYTES % 9.1 % (20.0-50.0); MEAN CORPUSCULAR HEMOGLOBIN 34.3 pg (28.0-32.0); MEAN CORPUSCULAR VOLUME 103.7 fL (81.0-99.0); MEAN PLATELET VOLUME 8.4 fl (7.4-10.4); NEUTROPHILS % 82.5 % (40.0-76.0); PLATELET 147 x1000/uL (130-400); RED CELL DISTRIBUTION WIDTH 14.4 % (11.6-14.6)
[2020-05-16 10:19] LABS: CHLORIDE 98 mEq/L (98-107)
[2020-05-16] MEDS ORDERED: IPRATROPIUM/ALBUTEROL 0.5-3(2.5)MG/3ML NEB NEB PRN (10:45)
[2020-05-16] MEDS ORDERED: ONDANSETRON HCL 4MG/2ML INJ IV PRN (10:45)
[2020-05-16] MEDS ORDERED: GUAIFENESIN 200MG/10ML SUGAR FREE UDC PO PRN (10:45)
[2020-05-16] MEDS ORDERED: MAGNESIUM/ALUMINUM HYDROXIDE/SIMETHICONE 30ML UDC PO PRN (10:45)
[2020-05-16] MEDS ORDERED: DOCUSATE SODIUM 100MG CAPSULE PO PRN (10:45)
[2020-05-16] MEDS ORDERED: CARVEDILOL 12.5MG TABLET PO SCH (11:00)
[2020-05-16] MEDS ORDERED: DEXTROSE 50% WATER 50ML SYRINGE IV PRN (12:30)
[2020-05-16] MEDS: BLOOD SUGAR DIAGNOSTIC STRIP TEST SCH ×3 (12:30→21:00)
[2020-05-16] MEDS ORDERED: SEVELAMER CARBONATE 800 MG TABLET PO SCH ×2 (13:00→18:00)
[2020-05-16] MEDS: INSULIN LISPRO 100 UNITS/ML SUBCUT SCH ×3 (13:00→20:55)
[2020-05-16] MEDS: ASPIRIN 81MG EC TABLET PO SCH (13:44)
[2020-05-16] MEDS: SERTRALINE HCL 50MG TABLET PO SCH (13:44)
[2020-05-16] MEDS: PANTOPRAZOLE 40MG DR TABLET PO SCH (13:45)
[2020-05-16] MEDS: CLOPIDOGREL 75MG TABLET PO SCH (13:45)
[2020-05-16] MEDS: MONTELUKAST SODIUM 10MG TABLET PO SCH (13:45)
[2020-05-16] MEDS: ATORVASTATIN CALCIUM 10MG TABLET PO SCH (20:44)
[2020-05-16] MEDS: CARVEDILOL 12.5MG TABLET PO SCH (20:45)
[2020-05-16] MEDS: GABAPENTIN 300MG CAPSULE PO SCH (22:47)
[2020-05-17] VITALS (11 sets, daily range): BP systolic 118–168; BP diastolic 45–76
[2020-05-17] MEDS: CLONIDINE 0.1MG TABLET PO PRN (05:27)
[2020-05-17 06:25] LABS: BASOPHILS % 0.7 % (0.0-2.0); EOSINOPHILS % 2.6 % (0.0-5.0); HEMATOCRIT. 27.5 % (36.0-48.0); HEMOGLOBIN. 9.2 g/dL (12.0-16.0); LYMPHOCYTES % 13.4 % (20.0-50.0); MEAN CORPUSCULAR HEMOGLOBIN 34.7 pg (28.0-32.0); MEAN CORPUSCULAR VOLUME 104.4 fL (81.0-99.0); MEAN PLATELET VOLUME 9.3 fl (7.4-10.4); NEUTROPHILS % 74.3 % (40.0-76.0); PLATELET 101 x1000/uL (130-400); RED BLOOD CELL COUNT 2.63 mill/uL (4.2-5.4); RED CELL DISTRIBUTION WIDTH 14.6 % (11.6-14.6)
[2020-05-17 06:38] LABS: PHOSPHORUS 3.3 mg/dL (2.5-4.9)
[2020-05-17] MEDS: BLOOD SUGAR DIAGNOSTIC STRIP TEST SCH ×4 (08:27→21:00)
[2020-05-17] MEDS: MONTELUKAST SODIUM 10MG TABLET PO SCH (08:57)
[2020-05-17] MEDS: LOSARTAN POTASSIUM 100 MG TABLET PO SCH (08:57)
[2020-05-17] MEDS: INSULIN LISPRO 100 UNITS/ML SUBCUT SCH ×4 (08:57→21:00)
[2020-05-17] MEDS: ASPIRIN 81MG EC TABLET PO SCH (08:57)
[2020-05-17] MEDS: POLYETHYLENE GLYCOL 3350 (17GM) 1 DOSE PACK PO SCH (08:58)
[2020-05-17] MEDS: FOLIC ACID/VITAMIN B COMP W-C TABLET PO SCH (08:58)
[2020-05-17] MEDS: PANTOPRAZOLE 40MG DR TABLET PO SCH (08:58)
[2020-05-17] MEDS: CARVEDILOL 12.5MG TABLET PO SCH ×3 (09:00→20:59)
[2020-05-17] MEDS ORDERED: LOSARTAN POTASSIUM 50 MG TABLET PO SCH (09:00)
[2020-05-17] MEDS: CLOPIDOGREL 75MG TABLET PO SCH (09:14)
[2020-05-17] MEDS: SERTRALINE HCL 50MG TABLET PO SCH (09:15)
[2020-05-17] MEDS: INSULIN GLARGINE UD 100 UNITS/ML SYR SUBCUT SCH (09:17)
[2020-05-17] MEDS ORDERED: LACTULOSE 20G/30ML UDC PO PRN (12:45)
[2020-05-17] MEDS: GABAPENTIN 300MG CAPSULE PO SCH (20:54)
[2020-05-17] MEDS: ATORVASTATIN CALCIUM 10MG TABLET PO SCH (20:59)
[2020-05-18] VITALS (13 sets, daily range): BP systolic 136–219; BP diastolic 37–121
[2020-05-18] MEDS: IPRATROPIUM/ALBUTEROL 0.5-3(2.5)MG/3ML NEB HHN SCH ×4 (02:52→21:20)
[2020-05-18] MEDS: INSULIN LISPRO 100 UNITS/ML SUBCUT SCH ×4 (08:00→21:00)
[2020-05-18] MEDS: BLOOD SUGAR DIAGNOSTIC STRIP TEST SCH ×4 (08:04→21:17)
[2020-05-18] MEDS: FAMOTIDINE 20MG TABLET PO SCH (08:30)
[2020-05-18] MEDS: ASPIRIN 81MG EC TABLET PO SCH (08:30)
[2020-05-18] MEDS: MONTELUKAST SODIUM 10MG TABLET PO SCH (08:30)
[2020-05-18] MEDS: FOLIC ACID/VITAMIN B COMP W-C TABLET PO SCH (08:30)
[2020-05-18] MEDS: CLOPIDOGREL 75MG TABLET PO SCH (08:30)
[2020-05-18] MEDS: SERTRALINE HCL 50MG TABLET PO SCH (08:30)
[2020-05-18] MEDS: CARVEDILOL 6.25 MG TABLET PO SCH ×2 (08:37→21:14)
[2020-05-18] MEDS: LOSARTAN POTASSIUM 100 MG TABLET PO SCH (08:37)
[2020-05-18] MEDS: HYDRALAZINE HCL 25MG TABLET PO SCH ×2 (08:37→21:19)
[2020-05-18] MEDS: POLYETHYLENE GLYCOL 3350 (17GM) 1 DOSE PACK PO SCH (08:39)
[2020-05-18 09:57] LABS: BASOPHILS % 0.8 % (0.0-2.0); EOSINOPHILS % 5.9 % (0.0-5.0); HEMATOCRIT. 28.4 % (36.0-48.0); HEMOGLOBIN. 9.5 g/dL (12.0-16.0); LYMPHOCYTES % 21.1 % (20.0-50.0); MEAN CORPUSCULAR HEMOGLOBIN 34.6 pg (28.0-32.0); MEAN PLATELET VOLUME 9.5 fl (7.4-10.4); MONOCYTES % 8.2 % (2.0-8.0); PLATELET 103 x1000/uL (130-400); RED BLOOD CELL COUNT 2.73 mill/uL (4.2-5.4); RED CELL DISTRIBUTION WIDTH 14.1 % (11.6-14.6)
[2020-05-18 10:15] LABS: PHOSPHORUS 4.5 mg/dL (2.5-4.9)
[2020-05-18] MEDS: INSULIN GLARGINE UD 100 UNITS/ML SYR SUBCUT SCH (11:05)
[2020-05-18] MEDS: ACETAMINOPHEN 325MG TABLET PO PRN ×3 (14:00→16:31)
[2020-05-18] MEDS ORDERED: LIDOCAINE HCL/PF 1% 10 MG/ML 5ML VIAL IJ NR (14:00)
[2020-05-18] MEDS ORDERED: EPOETIN ALFA-EPBX 4,000 UNIT/ML VIAL SUBCUT SCH (21:00)
[2020-05-18] MEDS: ATORVASTATIN CALCIUM 10MG TABLET PO SCH (21:13)
[2020-05-18] MEDS: GUAIFENESIN 600MG ER TABLET PO SCH (21:13)
[2020-05-18] MEDS: GABAPENTIN 300MG CAPSULE PO SCH (21:14)
[2020-05-19] VITALS (8 sets, daily range): BP systolic 104–184; BP diastolic 42–91
[2020-05-19] MEDS: IPRATROPIUM/ALBUTEROL 0.5-3(2.5)MG/3ML NEB HHN SCH ×3 (02:32→15:10)
[2020-05-19] MEDS: ACETAMINOPHEN 325MG TABLET PO PRN (02:56)
[2020-05-19 06:20] LABS: BASOPHILS % 0.6 % (0.0-2.0); EOSINOPHILS % 5.1 % (0.0-5.0); HEMATOCRIT. 26.2 % (36.0-48.0); MEAN CORPUSCULAR HEMOGLOBIN 34.8 pg (28.0-32.0); MEAN CORPUSCULAR VOLUME 101.4 fL (81.0-99.0); MEAN PLATELET VOLUME 9.6 fl (7.4-10.4); MONOCYTES % 9.1 % (2.0-8.0); NEUTROPHILS % 66.2 % (40.0-76.0); PLATELET 96 x1000/uL (130-400); RED BLOOD CELL COUNT 2.59 mill/uL (4.2-5.4)
[2020-05-19] MEDS: INSULIN LISPRO 100 UNITS/ML SUBCUT SCH ×2 (08:00→13:08)
[2020-05-19] MEDS: BLOOD SUGAR DIAGNOSTIC STRIP TEST SCH ×2 (08:05→12:04)
[2020-05-19] MEDS: POLYETHYLENE GLYCOL 3350 (17GM) 1 DOSE PACK PO SCH (09:00)
[2020-05-19] MEDS: CARVEDILOL 6.25 MG TABLET PO SCH (09:00)
[2020-05-19] MEDS: HYDRALAZINE HCL 25MG TABLET PO SCH (09:00)
[2020-05-19] MEDS: LOSARTAN POTASSIUM 100 MG TABLET PO SCH (09:00)
[2020-05-19] MEDS: SERTRALINE HCL 50MG TABLET PO SCH (09:13)
[2020-05-19] MEDS: CLOPIDOGREL 75MG TABLET PO SCH (09:13)
[2020-05-19] MEDS: ASPIRIN 81MG EC TABLET PO SCH (09:13)
[2020-05-19] MEDS: MONTELUKAST SODIUM 10MG TABLET PO SCH (09:13)
[2020-05-19] MEDS: FOLIC ACID/VITAMIN B COMP W-C TABLET PO SCH (09:13)
[2020-05-19] MEDS: GUAIFENESIN 600MG ER TABLET PO SCH (09:13)
[2020-05-19] MEDS: FAMOTIDINE 20MG TABLET PO SCH (09:13)
[2020-05-19] MEDS: INSULIN GLARGINE UD 100 UNITS/ML SYR SUBCUT SCH (11:37)
[2020-05-19] MEDS: CLONIDINE 0.1MG TABLET PO PRN (13:08)
== END 2020-05-19 18:10 | disposition home or self-care (01) | DRG 291 ==
LOC: ER 07:45 → 5EST 08:33 → ENRESERV 09:04 → 5EST 17:19
PROVIDERS: ADMIT Hospitalist; ATTEND Hospitalist
PROC: 5A09357 Assistance with Respiratory Ventilation, Less than 24 Consecutive Hours, Continuous Positive Airway Pressure (ICD-10-PCS; principal; 2020-05-16)
PROC: 5A1D70Z Performance of Urinary Filtration, Intermittent, Less than 6 Hours Per Day (ICD-10-PCS; 2020-05-18)
DX: I13.2 Hypertensive heart and chronic kidney disease with heart failure and with stage 5 chronic kidney disease, or end stage renal disease (principal); J96.01 Acute respiratory failure with hypoxia; I50.33 Acute on chronic diastolic (congestive) heart failure; N18.6 End stage renal disease; Z68.41 Body mass index [BMI] 40.0-44.9, adult; I35.0 Nonrheumatic aortic (valve) stenosis; I27.29 Other secondary pulmonary hypertension; E87.5 Hyperkalemia; E78.5 Hyperlipidemia, unspecified; E66.09 Other obesity due to excess calories; E11.22 Type 2 diabetes mellitus with diabetic chronic kidney disease; D64.9 Anemia, unspecified; G47.33 Obstructive sleep apnea (adult) (pediatric); H54.61 Unqualified visual loss, right eye, normal vision left eye; H54.62 Unqualified visual loss, left eye, normal vision right eye; I16.0 Hypertensive urgency; E21.3 Hyperparathyroidism, unspecified; F32.9 Major depressive disorder, single episode, unspecified; E11.42 Type 2 diabetes mellitus with diabetic polyneuropathy; I25.10 Atherosclerotic heart disease of native coronary artery without angina pectoris; J44.9 Chronic obstructive pulmonary disease, unspecified; M19.90 Unspecified osteoarthritis, unspecified site; K21.9 Gastro-esophageal reflux disease without esophagitis; K59.00 Constipation, unspecified; Z79.4 Long term (current) use of insulin; Z99.2 Dependence on renal dialysis; Z82.49 Family history of ischemic heart disease and other diseases of the circulatory system; Z83.3 Family history of diabetes mellitus; Z86.73 Personal history of transient ischemic attack (TIA), and cerebral infarction without residual deficits; Z95.2 Presence of prosthetic heart valve; Z95.5 Presence of coronary angioplasty implant and graft; Z88.6 Allergy status to analgesic agent; Z88.0 Allergy status to penicillin; Z79.899 Other long term (current) drug therapy; I25.2 Old myocardial infarction; R00.1 Bradycardia, unspecified
CPT/HCPCS: 36415; 36600; 71045; 80048; 80053; 82375; 82805; 82962; 83036; 83880; 84100; 84484; 85025; 93005; 94640; 94660; 99291; C1893; J0885; J1815; J1940; J3490

== ENCOUNTER 2020-07-03 12:15 | Inpatient (IN) | payer MEDICARE, MEDICAID ==
[~2020-07-03] VITALS: Ht 157.5 cm; Wt 92.3 kg
[~2020-07-03 12:15] MED LIST changes: -CARV12.545 MT
[2020-07-03] MEDS ORDERED: METHYLPREDNISOLONE SOD SUCC 125 MG/2 ML VIAL IV STA (12:35)
[2020-07-03] MEDS ORDERED: ALBUTEROL (0.083%) 2.5MG/3ML NEB HHN STA (12:35)
[2020-07-03] MEDS ORDERED: NITROGLYCERIN OINT 1GM/INCH UDPKT TD ONE (12:45)
[2020-07-03] MEDS: IPRATROPIUM BROMIDE (0.02%) 0.5MG/2.5ML NEB HHN STA ×2 (13:07→13:09)
[2020-07-03 13:53] LABS: BASOPHILS % 0.7 % (0.0-2.0); EOSINOPHILS % 2.8 % (0.0-5.0); HEMATOCRIT. 30.1 % (36.0-48.0); HEMOGLOBIN. 10.1 g/dL (12.0-16.0); MEAN CORPUSCULAR HEMOGLOBIN 33.9 pg (28.0-32.0); MEAN CORPUSCULAR VOLUME 100.7 fL (81.0-99.0); MEAN PLATELET VOLUME 8.5 fl (7.4-10.4); MONOCYTES % 6.7 % (2.0-8.0); NEUTROPHILS % 71.8 % (40.0-76.0); PLATELET 163 x1000/uL (130-400); RED BLOOD CELL COUNT 2.99 mill/uL (4.2-5.4)
[2020-07-03 13:59] LABS: CHLORIDE 99 mEq/L (98-107)
[2020-07-03 14:02] LABS: PROTHROMBIN TIME 10.9 sec (9.6-11.0)
[2020-07-03] MEDS ORDERED: ASPIRIN 325MG EC TABLET PO ONE (14:30)
[2020-07-03] MEDS ORDERED: ONDANSETRON HCL 4MG/2ML INJ IV PRN (15:30)
[2020-07-03] MEDS ORDERED: ACETAMINOPHEN 325MG TABLET PO PRN ×2 (15:30)
[2020-07-03] MEDS ORDERED: GUAIFENESIN 200MG/10ML SUGAR FREE UDC PO PRN (15:30)
[2020-07-03] MEDS ORDERED: MAGNESIUM/ALUMINUM HYDROXIDE/SIMETHICONE 30ML UDC PO PRN (15:30)
[2020-07-03] MEDS ORDERED: IPRATROPIUM/ALBUTEROL 0.5-3(2.5)MG/3ML NEB NEB PRN (15:30)
[2020-07-03] MEDS ORDERED: ZOLPIDEM TARTRATE 5MG TABLET PO PRN (15:30)
[2020-07-03] MEDS ORDERED: DOCUSATE SODIUM 100MG CAPSULE PO PRN (15:30)
[2020-07-03] MEDS ORDERED: MORPHINE SULFATE 2 MG/ML CPJ (NOT FOR IM USE) IV PRN (15:30)
[2020-07-03] MEDS ORDERED: DEXTROSE 50% WATER 50ML SYRINGE IV PRN (15:30)
[2020-07-03] MEDS ORDERED: DIPHENHYDRAMINE 50MG/ML VIAL IV PRN (15:30)
[2020-07-03] MEDS ORDERED: NITROGLYCERIN 0.4MG TABLET SL SL PRN (15:30)
[2020-07-03 16:07] LABS: T4 FREE 1.1 ng/dL (0.76-1.46)
[2020-07-03 16:21] LABS: FOLIC ACID (FOLATE) SERUM 7.9 ng/mL (>5.38)
[2020-07-03] MEDS: ENOXAPARIN 100MG/ML SYR SUBCUT SCH (17:00)
[2020-07-03 18:55] VITALS: BP 200/69
[2020-07-03] MEDS ORDERED: LIDOCAINE HCL 1% 20ML VIAL (Pyxis) INJ INFIL NR (19:30)
[2020-07-03 20:00] VITALS: BP_SYST 149; BP_DIAS 75; BP_DIAS 82
[2020-07-03] MEDS: BLOOD SUGAR DIAGNOSTIC STRIP TEST SCH (20:55)
[2020-07-03] MEDS: INSULIN LISPRO 100 UNITS/ML SUBCUT SCH (20:56)
[2020-07-03] MEDS ORDERED: METOPROLOL TARTRATE 25MG TABLET PO SCH (21:00)
[2020-07-03] MEDS: NITROGLYCERIN OINT 1GM/INCH UDPKT TD SCH (21:00)
[2020-07-04] VITALS: BP 179/56
[2020-07-04] MEDS: CLONIDINE 0.1MG TABLET PO PRN ×2 (00:07→16:51)
[2020-07-04 04:00] VITALS: BP 169/70
[2020-07-04] MEDS: NITROGLYCERIN OINT 1GM/INCH UDPKT TD SCH (05:24)
[2020-07-04] MEDS: BLOOD SUGAR DIAGNOSTIC STRIP TEST SCH ×4 (05:25→21:57)
[2020-07-04] MEDS: INSULIN LISPRO 100 UNITS/ML SUBCUT SCH ×4 (05:25→22:03)
[2020-07-04 06:00] LABS: BASOPHILS % 0.2 % (0.0-2.0); HEMATOCRIT. 29.2 % (36.0-48.0); HEMOGLOBIN. 9.7 g/dL (12.0-16.0); LYMPHOCYTES % 8.5 % (20.0-50.0); MEAN CORPUSCULAR HEMOGLOBIN 33.9 pg (28.0-32.0); MEAN PLATELET VOLUME 9.8 fl (7.4-10.4); MONOCYTES % 5.8 % (2.0-8.0); NEUTROPHILS % 85.5 % (40.0-76.0); PLATELET 142 x1000/uL (130-400); RED BLOOD CELL COUNT 2.86 mill/uL (4.2-5.4); RED CELL DISTRIBUTION WIDTH 15.6 % (11.6-14.6)
[2020-07-04 07:35] LABS: CHLORIDE 99 mEq/L (98-107)
[2020-07-04 07:45] LABS: PHOSPHORUS 3.6 mg/dL (2.5-4.9)
[2020-07-04 07:47] LABS: CREATINE KINASE 88 IU/L (26-192)
[2020-07-04 07:50] LABS: CREATINE KINASE MB FRACTION 1.8 ng/mL (0.5-3.6)
[2020-07-04 08:26] VITALS: BP 175/60
[2020-07-04 11:08] LABS: CREATINE KINASE MB FRACTION 2.4 ng/mL (0.5-3.6)
[2020-07-04 12:10] VITALS: BP 138/56
[2020-07-04] MEDS: ASPIRIN 81MG EC TABLET PO SCH (12:42)
[2020-07-04] MEDS: ZINC SULFATE 220 MG ( 50 ) CAPSULE PO SCH (12:42)
[2020-07-04] MEDS: LOSARTAN POTASSIUM 50 MG TABLET PO SCH (12:42)
[2020-07-04] MEDS: HYDRALAZINE HCL 25MG TABLET PO SCH ×2 (12:43→21:57)
[2020-07-04] MEDS: CHOLECALCIFEROL (D3) 1000 UNIT TABLET PO SCH (12:43)
[2020-07-04] MEDS: CLOPIDOGREL 75MG TABLET PO SCH (12:43)
[2020-07-04] MEDS: FAMOTIDINE 20MG TABLET PO SCH (12:43)
[2020-07-04] MEDS: GUAIFENESIN/DM 600MG/30MG ER TAB 12HR PO SCH ×2 (12:44→21:57)
[2020-07-04] MEDS: INSULIN GLARGINE UD 100 UNITS/ML SYR SUBCUT SCH (12:45)
[2020-07-04 15:32] VITALS: BP 168/52
[2020-07-04] MEDS: ENOXAPARIN 100MG/ML SYR SUBCUT SCH (17:00)
[2020-07-04 20:00] VITALS: BP 140/68
[2020-07-04] MEDS ORDERED: CARVEDILOL 6.25 MG TABLET PO SCH (21:00)
[2020-07-04] MEDS ORDERED: EPOETIN ALFA-EPBX 4,000 UNIT/ML VIAL SUBCUT SCH (21:00)
[2020-07-05] VITALS (7 sets, daily range): BP systolic 139–181; BP diastolic 29–93
[2020-07-05] MEDS: BLOOD SUGAR DIAGNOSTIC STRIP TEST SCH ×4 (06:42→21:28)
[2020-07-05] MEDS: INSULIN LISPRO 100 UNITS/ML SUBCUT SCH ×4 (07:50→21:37)
[2020-07-05 08:41] LABS: BASOPHILS % 0.8 % (0.0-2.0); HEMATOCRIT. 30.2 % (36.0-48.0); HEMOGLOBIN. 9.9 g/dL (12.0-16.0); LYMPHOCYTES % 22.8 % (20.0-50.0); MEAN CORPUSCULAR HEMOGLOBIN 33.2 pg (28.0-32.0); MONOCYTES % 8.3 % (2.0-8.0); NEUTROPHILS % 63.1 % (40.0-76.0); PLATELET 149 x1000/uL (130-400); RED BLOOD CELL COUNT 2.99 mill/uL (4.2-5.4); RED CELL DISTRIBUTION WIDTH 15.6 % (11.6-14.6)
[2020-07-05 08:46] LABS: PHOSPHORUS 4.6 mg/dL (2.5-4.9)
[2020-07-05] MEDS: HYDRALAZINE HCL 50MG TABLET PO SCH ×2 (09:12→21:31)
[2020-07-05] MEDS: GUAIFENESIN/DM 600MG/30MG ER TAB 12HR PO SCH ×2 (09:12→21:28)
[2020-07-05] MEDS: ZINC SULFATE 220 MG ( 50 ) CAPSULE PO SCH (09:13)
[2020-07-05] MEDS: CHOLECALCIFEROL (D3) 1000 UNIT TABLET PO SCH (09:13)
[2020-07-05] MEDS: CLOPIDOGREL 75MG TABLET PO SCH (09:13)
[2020-07-05] MEDS: ASPIRIN 81MG EC TABLET PO SCH (09:13)
[2020-07-05] MEDS: LOSARTAN POTASSIUM 50 MG TABLET PO SCH (09:14)
[2020-07-05] MEDS: FAMOTIDINE 20MG TABLET PO SCH (09:14)
[2020-07-05] MEDS: CARVEDILOL 3.125 MG TABLET PO SCH ×2 (09:17→21:31)
[2020-07-05] MEDS: INSULIN GLARGINE UD 100 UNITS/ML SYR SUBCUT SCH (10:25)
[2020-07-05] MEDS: CLONIDINE 0.1MG TABLET PO PRN (12:36)
[2020-07-05] MEDS: ENOXAPARIN 100MG/ML SYR SUBCUT SCH (17:29)
[2020-07-06] VITALS: BP 132/52
[2020-07-06 04:00] VITALS: BP 168/42
[2020-07-06] MEDS: BLOOD SUGAR DIAGNOSTIC STRIP TEST SCH ×4 (06:27→21:00)
[2020-07-06] MEDS: INSULIN LISPRO 100 UNITS/ML SUBCUT SCH ×4 (07:50→21:03)
[2020-07-06 08:00] VITALS: BP 185/45
[2020-07-06] MEDS: ZINC SULFATE 220 MG ( 50 ) CAPSULE PO SCH (08:58)
[2020-07-06] MEDS: ASPIRIN 81MG EC TABLET PO SCH (08:58)
[2020-07-06] MEDS: CLOPIDOGREL 75MG TABLET PO SCH (08:58)
[2020-07-06] MEDS: FAMOTIDINE 20MG TABLET PO SCH (08:58)
[2020-07-06] MEDS: GUAIFENESIN/DM 600MG/30MG ER TAB 12HR PO SCH ×2 (08:58→21:04)
[2020-07-06] MEDS: CHOLECALCIFEROL (D3) 1000 UNIT TABLET PO SCH (08:58)
[2020-07-06] MEDS: CARVEDILOL 3.125 MG TABLET PO SCH ×2 (09:00→21:04)
[2020-07-06] MEDS: LOSARTAN POTASSIUM 50 MG TABLET PO SCH (09:00)
[2020-07-06] MEDS: HYDRALAZINE HCL 50MG TABLET PO SCH ×2 (09:00→21:04)
[2020-07-06] MEDS: INSULIN GLARGINE UD 100 UNITS/ML SYR SUBCUT SCH (10:50)
[2020-07-06 12:00] VITALS: BP 195/65
[2020-07-06 15:38] LABS: EOSINOPHILS % 4.8 % (0.0-5.0); HEMATOCRIT. 31.3 % (36.0-48.0); HEMOGLOBIN. 10.8 g/dL (12.0-16.0); LYMPHOCYTES % 19.8 % (20.0-50.0); MEAN PLATELET VOLUME 9.1 fl (7.4-10.4); MONOCYTES % 8.3 % (2.0-8.0); NEUTROPHILS % 66.1 % (40.0-76.0); PLATELET 155 x1000/uL (130-400); RED BLOOD CELL COUNT 3.17 mill/uL (4.2-5.4)
[2020-07-06 16:00] VITALS: BP 171/70
[2020-07-06] MEDS: ENOXAPARIN 100MG/ML SYR SUBCUT SCH (17:47)
[2020-07-06] MEDS: CLONIDINE 0.1MG TABLET PO PRN (18:13)
[2020-07-06 20:00] VITALS: BP 141/56
[2020-07-07] VITALS (7 sets, daily range): BP systolic 155–189; BP diastolic 38–71
[2020-07-07] MEDS: CLONIDINE 0.1MG TABLET PO PRN (03:51)
[2020-07-07] MEDS: BLOOD SUGAR DIAGNOSTIC STRIP TEST SCH ×3 (06:22→17:20)
[2020-07-07] MEDS: CARVEDILOL 3.125 MG TABLET PO SCH (09:12)
[2020-07-07] MEDS: CLOPIDOGREL 75MG TABLET PO SCH (09:12)
[2020-07-07] MEDS: CHOLECALCIFEROL (D3) 1000 UNIT TABLET PO SCH (09:12)
[2020-07-07] MEDS: ZINC SULFATE 220 MG ( 50 ) CAPSULE PO SCH (09:12)
[2020-07-07] MEDS: LOSARTAN POTASSIUM 50 MG TABLET PO SCH (09:12)
[2020-07-07] MEDS: GUAIFENESIN/DM 600MG/30MG ER TAB 12HR PO SCH (09:13)
[2020-07-07] MEDS: ASPIRIN 81MG EC TABLET PO SCH (09:13)
[2020-07-07] MEDS: HYDRALAZINE HCL 50MG TABLET PO SCH (09:13)
[2020-07-07] MEDS: FAMOTIDINE 20MG TABLET PO SCH (09:13)
[2020-07-07] MEDS: INSULIN LISPRO 100 UNITS/ML SUBCUT SCH ×2 (09:19→17:40)
[2020-07-07] MEDS: INSULIN GLARGINE UD 100 UNITS/ML SYR SUBCUT SCH (10:53)
[2020-07-07] MEDS: ENOXAPARIN 100MG/ML SYR SUBCUT SCH (16:51)
[2020-07-07] MEDS ORDERED: HYDRALAZINE HCL 100MG TABLET PO SCH (21:00)
== END 2020-07-07 20:45 | disposition home health service (06) | DRG 280 ==
LOC: ER 12:38 → 6WST 14:36 → EDBEDREQTM 14:47 → EDBEDREQ 14:47 → SUPCPDRO 15:06 → ENRESERV 17:38
PROVIDERS: ADMIT Internal Medicine; ATTEND Internal Medicine
PROC: 5A1D70Z Performance of Urinary Filtration, Intermittent, Less than 6 Hours Per Day (ICD-10-PCS; principal; 2020-07-04)
PROC: 5A1D70Z Performance of Urinary Filtration, Intermittent, Less than 6 Hours Per Day (ICD-10-PCS; 2020-07-06)
DX: I13.2 Hypertensive heart and chronic kidney disease with heart failure and with stage 5 chronic kidney disease, or end stage renal disease (principal); I21.4 Non-ST elevation (NSTEMI) myocardial infarction; I50.33 Acute on chronic diastolic (congestive) heart failure; N18.6 End stage renal disease; J96.01 Acute respiratory failure with hypoxia; I16.1 Hypertensive emergency; E87.1 Hypo-osmolality and hyponatremia; D53.9 Nutritional anemia, unspecified; D63.8 Anemia in other chronic diseases classified elsewhere; E11.22 Type 2 diabetes mellitus with diabetic chronic kidney disease; E78.00 Pure hypercholesterolemia, unspecified; J44.9 Chronic obstructive pulmonary disease, unspecified; Z82.49 Family history of ischemic heart disease and other diseases of the circulatory system; E05.90 Thyrotoxicosis, unspecified without thyrotoxic crisis or storm; K21.9 Gastro-esophageal reflux disease without esophagitis; I25.10 Atherosclerotic heart disease of native coronary artery without angina pectoris; E03.9 Hypothyroidism, unspecified; E66.9 Obesity, unspecified; Z79.4 Long term (current) use of insulin; Z95.2 Presence of prosthetic heart valve; Z99.2 Dependence on renal dialysis; I25.2 Old myocardial infarction; Z71.3 Dietary counseling and surveillance; Z68.37 Body mass index [BMI] 37.0-37.9, adult; Z88.0 Allergy status to penicillin; Z88.5 Allergy status to narcotic agent; Z88.8 Allergy status to other drugs, medicaments and biological substances; Z79.82 Long term (current) use of aspirin; Z79.899 Other long term (current) drug therapy
CPT/HCPCS: 36415; 71045; 80048; 80053; 80061; 82550; 82553; 82607; 82746; 82962; 83036; 83540; 83550; 83735; 84100; 84439; 84443; 84484; 85025; 93005; 93306; 93970; 94640; 97162; 97530; 97535; 99285; J0885; J1200; J1650; J1815; J2405; J2930; J3490

== ENCOUNTER 2020-10-10 07:52 | Inpatient (IN) | payer MEDICARE, MEDICAID ==
[~2020-10-10] VITALS: Ht 152.4 cm; Wt 94.9 kg
[~2020-10-10 07:52] MED LIST changes: -SERT-422 MT; +SERT50TA12 MT
[2020-10-10 08:28] LABS: BASOPHILS % 0.4 % (0.0-2.0); HEMATOCRIT. 34.2 % (36.0-48.0); HEMOGLOBIN. 11.6 g/dL (12.0-16.0); LYMPHOCYTES % 8.5 % (20.0-50.0); MEAN CORPUSCULAR VOLUME 100.1 fL (81.0-99.0); MEAN PLATELET VOLUME 8.2 fl (7.4-10.4); MONOCYTES % 6.5 % (2.0-8.0); NEUTROPHILS % 81.6 % (40.0-76.0); PLATELET 162 x1000/uL (130-400); RED BLOOD CELL COUNT 3.42 mill/uL (4.2-5.4); RED CELL DISTRIBUTION WIDTH 14.8 % (11.6-14.6)
[2020-10-10 08:32] LABS: CHLORIDE 100 mEq/L (98-107)
[2020-10-10] MEDS ORDERED: ENALAPRIL 2.5MG/2ML VIAL 2ML IV ONE (11:00)
[2020-10-10] MEDS ORDERED: ENALAPRIL 1.25MG/ML VIAL 1ML IV NR (11:00)
[2020-10-10] MEDS ORDERED: CEFTRIAXONE 1 G PREMIX 50 ML IV ONE (11:00)
[2020-10-10] MEDS ORDERED: FUROSEMIDE 40MG/4ML VIAL IVP ONE (11:00)
[2020-10-10] MEDS ORDERED: AZITHROMYCIN 500 MG in DEXT 5% WATER 250 ML IV ONE (11:00)
[2020-10-10 11:51] LABS: BG BASE EXCESS -1.6 mmol/L (-2.0-2.0); BG CARBOXYHEMOGLOBIN 0.1 % (0.5-1.5); BG DEOXYHEMOGLOBIN 0.5 % (0.0-5.0); BG FRACTION INSPIRED OXYGEN 100; BG HCO3 ACT 24.3 mmol/L (22.0-26.0); BG METHEMOGLOBIN 0.2 % (0.0-1.5); BG OXYGEN SATURATION 99.5 % (92.0-98.5); BG OXYHEMOGLOBIN 99.2 % (94.0-97.0); BG PCO2 45.9 mmHg (35.0-45.0); BG PH 7.341 (7.350-7.450); BG PO2 382.2 mmHg (75.0-100.0); BG SAMPLE SITE LEFT BRACHIAL; BG TOTAL HEMOGLOBIN 10.8 g/dL (12.0-18.0); BG VENT MODE MASK - BIPAP
[2020-10-10] MEDS: NITROGLYCERIN OINT 1GM/INCH UDPKT TD SCH ×2 (12:47→20:20)
[2020-10-10] MEDS: CLOPIDOGREL 75MG TABLET PO SCH (12:47)
[2020-10-10] MEDS: HYDRALAZINE HCL 100MG TABLET PO SCH ×2 (13:38→22:29)
[2020-10-10] MEDS: LOSARTAN POTASSIUM 50 MG TABLET PO SCH (13:38)
[2020-10-10 16:18] LABS: HEPATITIS B SURFACE ANTIGEN NEGATIVE
[2020-10-10 16:48] LABS: HEPATITIS A AB IGM NEGATIVE (NEGATIVE)
[2020-10-10] MEDS: CARVEDILOL 3.125 MG TABLET PO SCH (22:28)
[2020-10-10] MEDS: FAMOTIDINE 20MG TABLET PO SCH (22:29)
[2020-10-11] VITALS (7 sets, daily range): BP systolic 158–176; BP diastolic 61–96
[2020-10-11] MEDS ORDERED: ONDANSETRON HCL 4MG/2ML INJ IV PRN (00:30)
[2020-10-11] MEDS ORDERED: IPRATROPIUM/ALBUTEROL 0.5-3(2.5)MG/3ML NEB HHN PRN (00:30)
[2020-10-11] MEDS ORDERED: ACETAMINOPHEN 325MG TABLET PO PRN (00:30)
[2020-10-11] MEDS ORDERED: GUAIFENESIN 200MG/10ML SUGAR FREE UDC PO PRN (00:30)
[2020-10-11] MEDS ORDERED: DIPHENHYDRAMINE 50MG/ML VIAL IV PRN (00:30)
[2020-10-11] MEDS ORDERED: DEXTROSE 50% WATER 50ML SYRINGE IV PRN (00:30)
[2020-10-11] MEDS: ACETAMINOPHEN 325MG TABLET PO PRN ×2 (00:39→09:00)
[2020-10-11] MEDS: ZOLPIDEM TARTRATE 5MG TABLET PO PRN ×2 (00:40→20:54)
[2020-10-11] MEDS: NITROGLYCERIN OINT 1GM/INCH UDPKT TD SCH ×4 (06:00→18:54)
[2020-10-11] MEDS: SODIUM CHLORIDE 0.9% INJ 3ML FLUSH IVF SCH ×3 (06:34→22:26)
[2020-10-11] MEDS: BLOOD SUGAR DIAGNOSTIC STRIP TEST SCH ×4 (06:34→21:00)
[2020-10-11] MEDS: INSULIN LISPRO 100 UNITS/ML SUBCUT SCH ×4 (06:38→21:00)
[2020-10-11] MEDS: ASPIRIN 81MG EC TABLET PO SCH ×2 (08:00→08:59)
[2020-10-11] MEDS: HYDRALAZINE HCL 100MG TABLET PO SCH ×4 (08:15→22:00)
[2020-10-11] MEDS: ENOXAPARIN 30MG/0.3ML SYR SUBCUT SCH ×2 (08:57→09:00)
[2020-10-11] MEDS: LOSARTAN POTASSIUM 50 MG TABLET PO SCH ×2 (08:58→09:00)
[2020-10-11] MEDS: CARVEDILOL 3.125 MG TABLET PO SCH ×3 (08:58→22:27)
[2020-10-11] MEDS: CLOPIDOGREL 75MG TABLET PO SCH (09:00)
[2020-10-11] MEDS: SERTRALINE HCL 100MG TABLET PO SCH ×2 (09:00→13:22)
[2020-10-11] MEDS ORDERED: INSULIN GLARGINE UD 100 UNITS/ML SYR SUBCUT SCH (10:00)
[2020-10-11] MEDS: INSULIN GLARGINE UD 100 UNITS/ML SYR SUBCUT SCH (10:00)
[2020-10-11 10:10] LABS: BASOPHILS % 0.5 % (0.0-2.0); EOSINOPHILS % 3.1 % (0.0-5.0); HEMATOCRIT. 28.3 % (36.0-48.0); HEMOGLOBIN. 9.4 g/dL (12.0-16.0); LYMPHOCYTES % 8.5 % (20.0-50.0); MEAN CORPUSCULAR HEMOGLOBIN 33.6 pg (28.0-32.0); MEAN PLATELET VOLUME 8.8 fl (7.4-10.4); MONOCYTES % 8.8 % (2.0-8.0); NEUTROPHILS % 79.1 % (40.0-76.0); PLATELET 133 x1000/uL (130-400); RED CELL DISTRIBUTION WIDTH 14.9 % (11.6-14.6)
[2020-10-11 10:29] LABS: PHOSPHORUS 5.3 mg/dL (2.5-4.9)
[2020-10-11] MEDS: AMLODIPINE 5MG TABLET PO SCH (12:45)
[2020-10-11] MEDS ORDERED: CARV6.2548 MT (13:40)
[2020-10-11] MEDS ORDERED: HYDR-4134 MT (13:40)
[2020-10-11] MEDS ORDERED: LORAZEPAM 2MG/ML CPJ IV PRN (15:45)
[2020-10-11] MEDS ORDERED: LORAZEPAM 2MG/ML CPJ IM NR (17:15)
[2020-10-11] MEDS: FAMOTIDINE 20MG TABLET PO SCH (22:26)
[2020-10-12] VITALS: BP 136/64
[2020-10-12 04:00] VITALS: BP 157/73
[2020-10-12] MEDS: SODIUM CHLORIDE 0.9% INJ 3ML FLUSH IVF SCH ×3 (05:53→21:17)
[2020-10-12] MEDS: HYDRALAZINE HCL 100MG TABLET PO SCH ×3 (05:53→21:18)
[2020-10-12] MEDS: NITROGLYCERIN OINT 1GM/INCH UDPKT TD SCH ×5 (05:54→23:33)
[2020-10-12] MEDS: BLOOD SUGAR DIAGNOSTIC STRIP TEST SCH ×4 (05:54→21:19)
[2020-10-12] MEDS: INSULIN LISPRO 100 UNITS/ML SUBCUT SCH ×4 (06:28→21:00)
[2020-10-12 08:00] VITALS: BP 168/86
[2020-10-12] MEDS: CLOPIDOGREL 75MG TABLET PO SCH (09:08)
[2020-10-12] MEDS: LOSARTAN POTASSIUM 50 MG TABLET PO SCH (09:08)
[2020-10-12] MEDS: ENOXAPARIN 40MG/0.4ML SYR SUBCUT SCH (09:08)
[2020-10-12] MEDS: SERTRALINE HCL 100MG TABLET PO SCH (09:08)
[2020-10-12] MEDS: CARVEDILOL 3.125 MG TABLET PO SCH ×2 (09:09→21:18)
[2020-10-12] MEDS: ASPIRIN 81MG EC TABLET PO SCH (09:09)
[2020-10-12] MEDS: AMLODIPINE 5MG TABLET PO SCH (09:10)
[2020-10-12 09:53] LABS: BASOPHILS % 0.6 % (0.0-2.0); EOSINOPHILS % 2.9 % (0.0-5.0); HEMATOCRIT. 28.1 % (36.0-48.0); HEMOGLOBIN. 9.5 g/dL (12.0-16.0); LYMPHOCYTES % 8.1 % (20.0-50.0); MEAN CORPUSCULAR HEMOGLOBIN 34.3 pg (28.0-32.0); MEAN CORPUSCULAR VOLUME 101.7 fL (81.0-99.0); MEAN PLATELET VOLUME 8.9 fl (7.4-10.4); MONOCYTES % 8.2 % (2.0-8.0); NEUTROPHILS % 80.2 % (40.0-76.0); PLATELET 133 x1000/uL (130-400); RED BLOOD CELL COUNT 2.77 mill/uL (4.2-5.4); RED CELL DISTRIBUTION WIDTH 14.7 % (11.6-14.6)
[2020-10-12 10:15] LABS: PHOSPHORUS 5.8 mg/dL (2.5-4.9)
[2020-10-12] MEDS: INSULIN GLARGINE UD 100 UNITS/ML SYR SUBCUT SCH (11:51)
[2020-10-12 12:00] VITALS: BP 153/70
[2020-10-12 16:00] VITALS: BP 177/73
[2020-10-12] MEDS ORDERED: EPOETIN ALFA-EPBX 4,000 UNIT/ML VIAL SUBCUT SCH (21:00)
[2020-10-12] MEDS ORDERED: QUETIAPINE FUMARATE 25MG TABLET PO SCH (21:00)
[2020-10-12] MEDS ORDERED: EPOETIN ALFA 10000UNITS/ML VIAL SUBCUT SCH (21:00)
[2020-10-12] MEDS: FAMOTIDINE 20MG TABLET PO SCH (21:18)
[2020-10-13] VITALS (7 sets, daily range): BP systolic 131–179; BP diastolic 50–77
[2020-10-13 05:46] LABS: PHOSPHORUS 4.6 mg/dL (2.5-4.9)
[2020-10-13 06:13] LABS: BASOPHILS % 0.7 % (0.0-2.0); EOSINOPHILS % 4.7 % (0.0-5.0); HEMATOCRIT. 28.1 % (36.0-48.0); HEMOGLOBIN. 9.4 g/dL (12.0-16.0); LYMPHOCYTES % 12.7 % (20.0-50.0); MEAN CORPUSCULAR HEMOGLOBIN 33.5 pg (28.0-32.0); MEAN CORPUSCULAR VOLUME 100.1 fL (81.0-99.0); MEAN PLATELET VOLUME 9.4 fl (7.4-10.4); MONOCYTES % 8.8 % (2.0-8.0); NEUTROPHILS % 73.1 % (40.0-76.0); PLATELET 126 x1000/uL (130-400); RED BLOOD CELL COUNT 2.81 mill/uL (4.2-5.4); RED CELL DISTRIBUTION WIDTH 14.7 % (11.6-14.6)
[2020-10-13] MEDS: BLOOD SUGAR DIAGNOSTIC STRIP TEST SCH ×3 (06:19→17:15)
[2020-10-13] MEDS: INSULIN LISPRO 100 UNITS/ML SUBCUT SCH ×3 (06:19→17:10)
[2020-10-13] MEDS: NITROGLYCERIN OINT 1GM/INCH UDPKT TD SCH ×3 (06:43→17:33)
[2020-10-13] MEDS: HYDRALAZINE HCL 100MG TABLET PO SCH ×2 (06:43→14:47)
[2020-10-13] MEDS: SODIUM CHLORIDE 0.9% INJ 3ML FLUSH IVF SCH ×2 (06:44→14:47)
[2020-10-13] MEDS: LOSARTAN POTASSIUM 50 MG TABLET PO SCH (09:35)
[2020-10-13] MEDS: ASPIRIN 81MG EC TABLET PO SCH (09:35)
[2020-10-13] MEDS: CLOPIDOGREL 75MG TABLET PO SCH (09:36)
[2020-10-13] MEDS: ENOXAPARIN 40MG/0.4ML SYR SUBCUT SCH (09:36)
[2020-10-13] MEDS: AMLODIPINE 5MG TABLET PO SCH (09:36)
[2020-10-13] MEDS: SERTRALINE HCL 100MG TABLET PO SCH (09:36)
[2020-10-13] MEDS: CARVEDILOL 3.125 MG TABLET PO SCH (09:36)
[2020-10-13] MEDS: INSULIN GLARGINE UD 100 UNITS/ML SYR SUBCUT SCH (09:39)
== END 2020-10-13 21:55 | disposition home or self-care (01) | DRG 291 ==
LOC: ER 08:18 → MICUSO 10:55 → 7EST 22:35
PROVIDERS: ADMIT Internal Medicine; ATTEND Internal Medicine
PROC: 5A1D70Z Performance of Urinary Filtration, Intermittent, Less than 6 Hours Per Day (ICD-10-PCS; principal; 2020-10-10)
PROC: 5A09357 Assistance with Respiratory Ventilation, Less than 24 Consecutive Hours, Continuous Positive Airway Pressure (ICD-10-PCS; 2020-10-10)
PROC: 5A1D70Z Performance of Urinary Filtration, Intermittent, Less than 6 Hours Per Day (ICD-10-PCS; 2020-10-12)
PROC: 5A1D70Z Performance of Urinary Filtration, Intermittent, Less than 6 Hours Per Day (ICD-10-PCS; 2020-10-13)
DX: I13.2 Hypertensive heart and chronic kidney disease with heart failure and with stage 5 chronic kidney disease, or end stage renal disease (principal); N18.6 End stage renal disease; I50.43 Acute on chronic combined systolic (congestive) and diastolic (congestive) heart failure; J96.90 Respiratory failure, unspecified, unspecified whether with hypoxia or hypercapnia; E87.2 Acidosis; F23 Brief psychotic disorder; I16.9 Hypertensive crisis, unspecified; G93.40 Encephalopathy, unspecified; Z68.42 Body mass index [BMI] 45.0-49.9, adult; D63.8 Anemia in other chronic diseases classified elsewhere; E66.01 Morbid (severe) obesity due to excess calories; E11.22 Type 2 diabetes mellitus with diabetic chronic kidney disease; E78.5 Hyperlipidemia, unspecified; F41.9 Anxiety disorder, unspecified; G47.33 Obstructive sleep apnea (adult) (pediatric); E11.42 Type 2 diabetes mellitus with diabetic polyneuropathy; F32.9 Major depressive disorder, single episode, unspecified; E83.39 Other disorders of phosphorus metabolism; H54.62 Unqualified visual loss, left eye, normal vision right eye; I05.9 Rheumatic mitral valve disease, unspecified; D64.9 Anemia, unspecified; I25.10 Atherosclerotic heart disease of native coronary artery without angina pectoris; J45.909 Unspecified asthma, uncomplicated; I27.20 Pulmonary hypertension, unspecified; Z20.822 Contact with and (suspected) exposure to COVID-19; I44.0 Atrioventricular block, first degree; J44.9 Chronic obstructive pulmonary disease, unspecified; M54.5 Low back pain; K21.9 Gastro-esophageal reflux disease without esophagitis; Z87.01 Personal history of pneumonia (recurrent); Z83.3 Family history of diabetes mellitus; Z82.49 Family history of ischemic heart disease and other diseases of the circulatory system; I25.2 Old myocardial infarction; Z95.2 Presence of prosthetic heart valve; Z95.5 Presence of coronary angioplasty implant and graft; Z79.899 Other long term (current) drug therapy; Z99.2 Dependence on renal dialysis; Z79.82 Long term (current) use of aspirin; Z79.4 Long term (current) use of insulin; Z88.0 Allergy status to penicillin; Z88.5 Allergy status to narcotic agent; Z88.8 Allergy status to other drugs, medicaments and biological substances
CPT/HCPCS: 36415; 36600; 71045; 80048; 80053; 82140; 82375; 82805; 82962; 83036; 83880; 84100; 84484; 85025; 86705; 86709; 86803; 87340; 87426; 93005; 93306; 94660; 99291; J0456; J0696; J0885; J1200; J1650; J1815; J1940; J2060; J3490; J7060

== ENCOUNTER 2021-02-04 09:01 | Inpatient (IN) | payer MEDICARE, MEDICAID ==
[~2021-02-04] VITALS: Ht 157.5 cm; Wt 105.0 kg
[~2021-02-04 09:01] MED LIST changes: +CARV6.2548 MT; +HYDR-4134 MT; -SACU1TAB MT; +SERT-422 MT; -SERT50TA12 MT
[2021-02-04 09:52] LABS: BASOPHILS % 0.7 % (0.0-2.0); EOSINOPHILS % 2.6 % (0.0-5.0); HEMATOCRIT. 30.4 % (36.0-48.0); HEMOGLOBIN. 9.9 g/dL (12.0-16.0); LYMPHOCYTES % 9.4 % (20.0-50.0); MEAN CORPUSCULAR VOLUME 100.9 fL (81.0-99.0); MEAN PLATELET VOLUME 8.5 fl (7.4-10.4); MONOCYTES % 5.9 % (2.0-8.0); NEUTROPHILS % 81.4 % (40.0-76.0); PLATELET 197 x1000/uL (130-400); RED BLOOD CELL COUNT 3.01 mill/uL (4.2-5.4); RED CELL DISTRIBUTION WIDTH 14.3 % (11.6-14.6)
[2021-02-04 10:49] LABS: CHLORIDE 94 mEq/L (98-107)
[2021-02-04] MEDS ORDERED: HYDRALAZINE 20MG/ML VIAL IV ONE (11:45)
[2021-02-04] MEDS ORDERED: LORAZEPAM 1MG TABLET PO ONE (13:00)
[2021-02-04] MEDS ORDERED: HYDRALAZINE HCL 25MG TABLET PO SCH (14:00)
[2021-02-04] MEDS ORDERED: ONDANSETRON HCL 4MG/2ML INJ IV PRN (14:00)
[2021-02-04] MEDS ORDERED: CLONIDINE 0.1MG TABLET PO PRN (14:00)
[2021-02-04] MEDS ORDERED: ACETAMINOPHEN 325MG TABLET PO PRN (14:00)
[2021-02-04] MEDS ORDERED: IPRATROPIUM/ALBUTEROL 0.5-3(2.5)MG/3ML NEB HHN PRN (14:00)
[2021-02-04] MEDS ORDERED: MORPHINE SULFATE 2 MG/ML CPJ (NOT FOR IM USE) IV PRN (14:00)
[2021-02-04] MEDS ORDERED: DIPHENHYDRAMINE 50MG/ML VIAL IV PRN (14:00)
[2021-02-04] MEDS ORDERED: NALOXONE HCL 0.4MG/ML VIAL IV PRN (14:15)
[2021-02-04 16:07] LABS: HEPATITIS B SURFACE ANTIGEN NEGATIVE
[2021-02-04] MEDS ORDERED: DEXTROSE 50% WATER 50ML SYRINGE IV PRN ×2 (16:45)
[2021-02-04] MEDS: BLOOD SUGAR DIAGNOSTIC STRIP TEST SCH ×2 (18:10→20:56)
[2021-02-04] MEDS: INSULIN LISPRO (MEDIUM DOSE) 100 UNITS/ML SUBCUT SCH ×2 (18:30→21:11)
[2021-02-04 19:15] VITALS: BP 142/45
[2021-02-04] MEDS ORDERED: CARVEDILOL 6.25 MG TABLET PO SCH (21:00)
[2021-02-05] MEDS ORDERED: FUROSEMIDE 40MG/4ML VIAL IV SCH (09:00)
== END 2021-02-04 22:10 | disposition left against medical advice (07) | DRG 291 ==
LOC: ER 09:28 → MICUSO 12:53 → 8WST 20:49
PROVIDERS: ADMIT Internal Medicine; ATTEND Internal Medicine
PROC: 5A1D70Z Performance of Urinary Filtration, Intermittent, Less than 6 Hours Per Day (ICD-10-PCS; principal; 2021-02-04)
DX: I13.2 Hypertensive heart and chronic kidney disease with heart failure and with stage 5 chronic kidney disease, or end stage renal disease (principal); N18.6 End stage renal disease; J96.00 Acute respiratory failure, unspecified whether with hypoxia or hypercapnia; N25.81 Secondary hyperparathyroidism of renal origin; E44.1 Mild protein-calorie malnutrition; E87.1 Hypo-osmolality and hyponatremia; Z68.41 Body mass index [BMI] 40.0-44.9, adult; D63.8 Anemia in other chronic diseases classified elsewhere; I16.0 Hypertensive urgency; I50.9 Heart failure, unspecified; Z53.29 Procedure and treatment not carried out because of patient's decision for other reasons; G47.33 Obstructive sleep apnea (adult) (pediatric); E66.01 Morbid (severe) obesity due to excess calories; R59.0 Localized enlarged lymph nodes; Z20.822 Contact with and (suspected) exposure to COVID-19; E11.22 Type 2 diabetes mellitus with diabetic chronic kidney disease; J44.9 Chronic obstructive pulmonary disease, unspecified; Z88.5 Allergy status to narcotic agent; Z88.0 Allergy status to penicillin; Z88.6 Allergy status to analgesic agent; Z95.2 Presence of prosthetic heart valve; Z99.2 Dependence on renal dialysis; Z83.3 Family history of diabetes mellitus; Z82.49 Family history of ischemic heart disease and other diseases of the circulatory system; Z95.5 Presence of coronary angioplasty implant and graft; Z79.899 Other long term (current) drug therapy
CPT/HCPCS: 36415; 71045; 80053; 82962; 83880; 84484; 85025; 86705; 86709; 86803; 87340; 87426; 93005; 99291; J0360; J1815